=== PATIENT | male | born 1940 | race Caucasian/White ===

== ENCOUNTER → 2019-11-25 10:21 | Outpatient (BNVA) | payer MEDICARE, SELFPAY | PROVIDERS: Family Provider Internal Medicine; Visit Provider Orthopaedic Surgery | DX: M25.571 Pain in right ankle and joints of right foot (principal) | CPT/HCPCS: 73610 ==

== ENCOUNTER 2021-01-07 13:00 | Outpatient (CLI) | payer OTHER, SELFPAY | END 2021-01-07 13:01 | disposition home or self-care (01) | LOC: WOUND 13:05 | PROVIDERS: Family Provider Internal Medicine; Visit Provider Thoracic Surgery (Cardiothoracic Vascular Surgery) | DX: L98.412 Non-pressure chronic ulcer of buttock with fat layer exposed (principal) | CPT/HCPCS: 97597; G0463 ==

== ENCOUNTER 2021-01-14 14:44 | Outpatient (CLI) | payer OTHER, SELFPAY | END 2021-01-14 14:45 | disposition home or self-care (01) | LOC: WOUND 14:45 | PROVIDERS: Family Provider Internal Medicine; Visit Provider Thoracic Surgery (Cardiothoracic Vascular Surgery) | DX: L89.322 Pressure ulcer of left buttock, stage 2 (principal) | CPT/HCPCS: 97597 ==

== ENCOUNTER 2021-01-21 14:55 | Outpatient (CLI) | payer OTHER, SELFPAY | END 2021-01-21 14:56 | disposition home or self-care (01) | LOC: WOUND 14:55 | PROVIDERS: Family Provider Internal Medicine; Visit Provider Thoracic Surgery (Cardiothoracic Vascular Surgery) | DX: Z09 Encounter for follow-up examination after completed treatment for conditions other than malignant neoplasm (principal) | CPT/HCPCS: 99212 ==

== ENCOUNTER → 2021-06-23 09:16 | Outpatient (BNVA) | payer OTHER, SELFPAY | PROVIDERS: Family Provider Internal Medicine; Referring Provider Family Medicine; Visit Provider Specialist | DX: G31.83 Neurocognitive disorder with Lewy bodies (principal); F02.80 Dementia in other diseases classified elsewhere, unspecified severity, without behavioral disturbance, psychotic disturbance, mood disturbance, and anxiety | CPT/HCPCS: 96116; 99205 ==

== ENCOUNTER 2021-07-05 13:33 | Outpatient (CLI) | payer OTHER, SELFPAY ==
--- NOTE | 2021-07-05 13:45 | CT_ITS ---
WS: [id number] CT LUMBAR SPINE TECHNIQUE: Noncontrast CT of the lumbar spine with coronal and sagittal reformatted images. 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 FINDINGS: Mild lumbar curve. Chronic appearing compression T12 vertebral body with biconcave compression and lo ss of approximately 50% vertebral body height centrally. Mild retropulsion posterior superior cortex with mild central canal stenosis. Vacuum disc phenomenon L2-L3 L3-L4 and L4-L5. 4.1 cm left renal cys t partially visualized. Adrenal glands appear normal. Aortic calcification. L1-L2: Disc osteophyte complex with endplate ridging. Narrowing of the right subarticular recess. Mil d central canal stenosis. Foramen are patent. L2-L3: Slight retrolisthesis. Mild disc osteophytic ridging. Mild left and no significant right barb inal narrowing. Spinal canal is patent. Moderate facet arthropathy. L3-L4: Disc osteophyte complex with endplate ridging. Narrowing of the right subarticular recess. Mil d right and no significant left foraminal narrowing. Moderate to advanced facet arthropathy with liga ment flavum hypertrophy. L4-L5: Mild disc osteophytic ridging. Moderate to advanced facet arthropathy. Mild right and no signi ficant left foraminal narrowing. Moderate facet arthropathy ligament flavum hypertrophy. L5-S1: Disc osteophyte complex with endplate ridging. Slight contact of the traversing S1 nerve roots bilaterally. Moderate left and mild right foraminal narrowing. Moderate facet arthropathy. Visualized pelvic bony structures: Normal. Paravertebral soft tissues: Normal. CT/CT lumbar spine wo con* [id number] IMPRESSION: 1. Chronic appearing biconcave compression T12 vertebral body with loss of [place] roximately 50% vertebral body height. Mild retropulsion of the posterior superi or cortex with mild central canal stenosis. 2. Right pericentral disc osteophyte complex L1-2 with impingement on the righ t subarticular recess and traversing right L2 nerve root. Mild central canal st enosis at this level. 3. Vacuum disc phenomenon L2-L3, L3-L4 and L4-L5. 4. Moderate left L5-S1 bony foraminal narrowing.
== END 2021-07-05 13:34 | disposition home or self-care (01) ==
PROVIDERS: Visit Provider Specialist
DX: G31.83 Neurocognitive disorder with Lewy bodies (principal); F02.80 Dementia in other diseases classified elsewhere, unspecified severity, without behavioral disturbance, psychotic disturbance, mood disturbance, and anxiety; M54.9 Dorsalgia, unspecified; R26.81 Unsteadiness on feet; M25.78 Osteophyte, vertebrae; M48.061 Spinal stenosis, lumbar region without neurogenic claudication; S22.089A Unspecified fracture of T11-T12 vertebra, initial encounter for closed fracture; X58.XXXA Exposure to other specified factors, initial encounter
CPT/HCPCS: 72131

== ENCOUNTER → 2021-08-10 13:06 | Outpatient (BNVA) | payer OTHER, SELFPAY | PROVIDERS: Visit Provider Specialist | DX: G31.83 Neurocognitive disorder with Lewy bodies (principal); F02.80 Dementia in other diseases classified elsewhere, unspecified severity, without behavioral disturbance, psychotic disturbance, mood disturbance, and anxiety | CPT/HCPCS: 95816 ==

== ENCOUNTER → 2021-10-05 13:49 | Outpatient (BNVA) | payer OTHER, SELFPAY | PROVIDERS: Visit Provider Specialist | DX: G20 Parkinson's disease (principal); F02.80 Dementia in other diseases classified elsewhere, unspecified severity, without behavioral disturbance, psychotic disturbance, mood disturbance, and anxiety; L89.309 Pressure ulcer of unspecified buttock, unspecified stage; Z87.891 Personal history of nicotine dependence | CPT/HCPCS: 99213; 99214 ==

== ENCOUNTER → 2022-02-02 11:23 | Outpatient (BNVA) | payer OTHER, SELFPAY | PROVIDERS: Referring Provider Family Medicine; Visit Provider Podiatrist Foot & Ankle Surgery | DX: G31.83 Neurocognitive disorder with Lewy bodies (principal); F02.80 Dementia in other diseases classified elsewhere, unspecified severity, without behavioral disturbance, psychotic disturbance, mood disturbance, and anxiety; Z87.891 Personal history of nicotine dependence; M25.579 Pain in unspecified ankle and joints of unspecified foot | CPT/HCPCS: 73610; 99213; 99214 ==

== ENCOUNTER → 2022-05-16 12:47 | Outpatient (BNVA) | payer OTHER, SELFPAY | PROVIDERS: PCP Family Medicine; Visit Provider Specialist | DX: G31.83 Neurocognitive disorder with Lewy bodies (principal); F02.80 Dementia in other diseases classified elsewhere, unspecified severity, without behavioral disturbance, psychotic disturbance, mood disturbance, and anxiety; M25.371 Other instability, right ankle; Z99.3 Dependence on wheelchair | CPT/HCPCS: 99213; 99214 ==

== ENCOUNTER → 2022-06-08 12:59 | Outpatient (BNVA) | payer OTHER, SELFPAY | PROVIDERS: PCP Family Medicine; Visit Provider Podiatrist Foot & Ankle Surgery | DX: M19.171 Post-traumatic osteoarthritis, right ankle and foot (principal); Z79.4 Long term (current) use of insulin; M25.371 Other instability, right ankle; I73.9 Peripheral vascular disease, unspecified; E11.9 Type 2 diabetes mellitus without complications | CPT/HCPCS: 99213; 99214 ==

== ENCOUNTER → 2022-06-14 14:47 | Outpatient (BNVA) | payer OTHER, SELFPAY | PROVIDERS: PCP Family Medicine; Visit Provider Internal Medicine Pulmonary Disease | DX: J45.909 Unspecified asthma, uncomplicated (principal); R06.09 Other forms of dyspnea; Z87.891 Personal history of nicotine dependence | CPT/HCPCS: 36415; 82103; 82785; 85025; 86003; 99204 ==

== ENCOUNTER 2022-07-06 07:51 | Outpatient (CLI) | payer OTHER, SELFPAY ==
--- NOTE | 2022-07-06 08:40 | XR_ITS ---
WS: [id number] Exam: XR chest 2V* [id number] Date/Time of Exam: 07/06/2022 8:47 AM Reason For Exam: Shortness of breath No priors. The lungs are fully expanded and clear. Cardiomediastinal silhouette is unremarkable for AP technique . No pleural effusions. Bony structures are intact. Partially visualized old compression fracture of T12. XR/XR chest 2V* [id number] IMPRESSION: 1. No acute cardiopulmonary finding.
--- NOTE | 2022-07-06 09:04 | PFTS_ITS ---
Date of Study:07/06/22 Date of Dictation: MECHANICS: Forced vital capacity (FVC) is reduced. Forced expiratory volume in one second (FEV1) is reduced. FEV1/FVC is reduced. FLOW VOLUME LOOP: Reduced at all lung volumes with significant scooping. LUNG VOLUMES: Total lung capacity (TLC) is reduced. Residual volume (RV) is normal. DIFFUSING CAPACITY FOR CARBON MONOXIDE: Moderately reduced. INTERPRETATION: The postbronchodilator spirometry is consistent with severe airflow obstruction. There is no significant postbronchodilator response. Lung volume is consistent with moderate restriction. Gas exchange (DLCO) is moderately reduced. MTDD
[2022-07-06 09:32] VITALS: O2SAT 86; O2SAT 93
== END 2022-07-06 07:52 | disposition home or self-care (01) ==
PROVIDERS: PCP Family Medicine; Visit Provider Internal Medicine Pulmonary Disease
DX: R06.02 Shortness of breath (principal)
CPT/HCPCS: 71046; 94060; 94726; 94729; 94760; J7611

== ENCOUNTER → 2022-08-03 14:56 | Outpatient (BNVA) | payer OTHER, SELFPAY | PROVIDERS: PCP Family Medicine; Visit Provider Internal Medicine Pulmonary Disease | DX: R06.09 Other forms of dyspnea (principal); Z87.891 Personal history of nicotine dependence; J44.9 Chronic obstructive pulmonary disease, unspecified; J45.20 Mild intermittent asthma, uncomplicated; J82.83 Eosinophilic asthma | CPT/HCPCS: 99214 ==

== ENCOUNTER → 2022-12-13 13:51 | Outpatient (BNVA) | payer OTHER, SELFPAY | PROVIDERS: PCP Family Medicine; Visit Provider Podiatrist Foot & Ankle Surgery | DX: I73.9 Peripheral vascular disease, unspecified (principal); M25.371 Other instability, right ankle; M19.171 Post-traumatic osteoarthritis, right ankle and foot; E11.9 Type 2 diabetes mellitus without complications; Z79.4 Long term (current) use of insulin | CPT/HCPCS: 99214 ==

== ENCOUNTER 2023-04-06 15:30 | Emergency (ER) | payer OTHER, SELFPAY ==
[2023-04-06 15:39] VITALS: BP 165/74; PULSE 74; TEMP 36.7; O2SAT 94; BMI 33.1
--- NOTE | 2023-04-06 15:42 | ED_ITS ---
HPI - General Adult General: Chief complaint: Urogenital-Male Stated complaint: uti Time Seen by Provider: 04/06/23 15:36 Source: EMS Mode of arrival: EMS Limitations: altered mental status History of Present Illness: 83-year-old male with a history of dementia is here by EMS as he has had decreased urine output. Per she states that he has not urinated all over the last few days and has been having some suprapubic pain and swelling. Patient has dementia no history is really available from him no known fevers. Review of Systems General: Reports: ROS unobtainable due to mental status PFS ED PFSH: Medical History Diabetic neuropathy Sprain of other ligament of right ankle, subsequent encounter Family History Father Asthma Mother Asthma Social History Smoking and tobacco status: former smoker Quit status (tobacco): has quit using tobacco Year quit tobacco: 1995 Former quit date comment: 1ppd x years Alcohol intake: never Substance/Drug Use: never Physical Exam Const: COMMON NORMALS: negative for patient oriented x3 HENMT: COMMON NORMALS: normocephalic and atraumatic HEAD & SCALP: normocephalic and atraumatic Eye: COMMON NORMALS: conjunctivae normal CONJUNCTIVA: Yes conjunctivae normal Neck/C-Spine: COMMON NORMALS: full ROM and supple Chest: COMMONS NORMALS: normal inspection of the chest Resp: COMMON NORMALS: normal respiratory effort Cardio: COMMON NORMALS: regular rate, regular rhythm and No murmurs present (Cardio) RATE: regular rate RHYTHM: regular rhythm GI: COMMON NORMALS: Normal to inspection, nondistended, normoactive bowel sounds present, Soft to palpation and no masses PALPATION: Yes Soft to palpation OTHER: suprapubic tenderness Extremity: COMMON NORMALS: normal to inspection and full ROM Neuro: COMMON NORMALS: moves all extremities and no focal motor deficits; negative for patient oriented x3 Psych: COMMON NORMALS: cooperative; negative for mental status grossly normal Skin: COMMON NORMALS: no rashes or lesions noted and no wounds GENERAL SKIN EXAM: no rashes or lesions noted Course Vital Signs: Vital signs: Vital Signs Temperature 98.1 F 06/01/23 15:39 Pulse Rate 75 04/06/23 16:30 Respiratory Rate 18 04/06/23 16:30 Blood Pressure 174/80 04/06/23 16:30 Pulse Oximetry 95 04/06/23 16:30 Oxygen Delivery Me thod Room Air 04/06/23 15:39 MDM - General Adult Medical Decision Making Patient presents here with urinary tension he had over thousand out after a Ruiz was placed no signs of UTI is otherwise well-appearing here we will discharge with Ruiz in place with leg bag we will get him follow-up with urology he is return if worsening. Medical Records I reviewed the patient's medical records. Lab Data I reviewed the patient's lab results. Laboratory Results Urine Color Divya (Yellow) 04/06/23 15:51 Urine Appearance Clear (CLEAR) 04/06/23 15:51 Urine pH 6 (5-7) 04/06/23 15:51 Ur Specific [place] 1.010 (1.005-1.030) 04/06/23 15:51 Urine Protein 1+ (Negative) H 04/06/23 15:51 Urine Glucose (UA) Norm (Normal) 04/06/23 15:51 Urine Ketones Negative (Negative) 04/06/23 15:51 Urine Blood Neg (Negative) 04/06/23 15:51 Urine Nitrate Negative (Negative) 04/06/23 15:51 Urine Bilirubin Neg (Negative) 04/06/23 15:51 Urine Urobilinogen 1 mg/dL (Negative) H 04/06/23 15:51 Ur Leukocyte Esterase Negative (Negative) 04/06/23 15:51 Urine RBC 0-4 /hpf (0-2) H 04/06/23 15:51 Urine WBC 0-4 /hpf (0-5) H 04/06/23 15:51 Ur Squamous Epith Cells 0-4 /hpf (0-5) H 04/06/23 15:51 Amorphous Sediment Not Reportable 04/06/23 15:51 Urine Bacteria Not Reportable 04/06/23 15:51 Urine Mucus 2+ /hpf 04/06/23 15:51 Discharge Plan Discharge Patient Disposition: Home Clinical Impression: Acute retention of urine Condition: Stable Prescriptions: No Action gabapentin 800 mg tablet 800 mg PO TID cetirizine 10 mg capsule PO magnesium oxide 400 mg magnesium capsule 400 mg PO QDAY sennosides [Evac-U-Gen (sennosides)] 8.6 mg tablet 8.6 mg PO BID cyclobenzaprine 10 mg tablet 10 mg PO BID triamterene-hydrochlorothiazid 75-50 mg tablet 0.5 tab PO QAM citalopram 40 mg tablet 40 mg PO QDAY (DME) Gait Belt See Rx Instructions .Route .MEDSUPPLY Qty: 1 0RF Rx Instructions: As directed (DME) AFO to right with shoes See Rx Instructions .Route .MEDSUPPLY Qty: 1 0RF Rx Instructions: As directed by LEVI&O omega 6-qeh-glh-fish oil [Fish Oil] 1,000 mg (120 mg-180 mg) capsule 1 cap PO DAILY cholecalciferol (vitamin D3) 125 mcg (5,000 unit) capsule 125 mcg PO DAILY coenzyme Q10 [Co Q-10] 200 mg capsule 200 mg PO DAILY famotidine 20 mg tablet 20 mg PO DAILY omega-3 fatty acids 1,250 mg capsule 1,250 mg PO BID aspirin [Adult Aspirin Regimen] 81 mg tablet,delayed release (DR/EC) 81 mg PO DAILY lactulose 10 gram/15 mL solution 10 g PO DAILY insulin aspart U-100 100 unit/mL solution 30 unit SUBCUT BID insulin glargine U-300 conc 300 unit/mL (3 mL) insulin pen 70 unit SUBCUT DAILY rosuvastatin 10 mg tablet 5 mg PO DAILY galantamine 4 mg tablet 4 mg PO BID Qty: 60 3RF Rx Instructions: administer with AM and PM meals albuterol sulfate 90 mcg/actuation HFA aerosol inhaler 2 puff inhalation Q6H PRN montelukast [Singulair] 10 mg tablet 10 mg PO DAILY Qty: 30 3RF ipratropium-albuterol 0.5 mg-3 mg(2.5 mg base)/3 mL solution for nebulization 3 ml inhalation Q6H PRN (Reason: wheezing) Qty: 180 3RF (DME) nebulizers Misc See Rx Instructions .Route Qty: 1 0RF Rx Instructions: Nebulizer and accessories (DME) Oxygen Therapy See Rx Instructions .Route .MEDSUPPLY Qty: 1 0RF Rx Instructions: oxygen concentrator and tanks; 2-4Lpm per NC; give cannula, tubing and accessories as needed fluticasone propion-salmeterol [Wixela Inhub] 250-50 mcg/dose blister with device 1 inh inhalation BID Qty: 60 3RF Discharge Orders: Discharge ED (Routine); Ordered 04/06/23 Ordered By: Tuan Newby Referrals: Rebecca Limon MD [Primary Care Provider] - 1-3 days Discharge Diet: Advance as tolerated Discharge Activity: Resume usual activity Patient Instructions: Ruiz Catheter Care, Urinary Retention in Men (ED) Coding Level of Care Code ED Business Solutions Analyst for Karime Valles
[2023-04-06 15:46] VITALS: BP 165/74; PULSE 69; RESP 16; O2SAT 94
[2023-04-06] MEDS: nystatin powder 15 gm Btl 1 APPLIC TOPICAL (16:14)
--- NOTE | 2023-04-06 16:19 | PC.PHAR ---
faxed [place] for med list
[2023-04-06 16:30] VITALS: BP 174/80; PULSE 75; RESP 18; O2SAT 95
[2023-04-06 17:02] LABS: Add Urine Microscopic? YES; Bilirubin Urine Neg (Negative); Blood Urine Neg (Negative); Glucose Urine UA Norm (Normal); Ketones Urine Negative (Negative); Leukocyte Esterase Urine Negative (Negative); Nitrate Urine Negative (Negative); Protein Urine 1+ (Negative); Urine Appearance Clear (CLEAR); Urine Color Amber (Yellow); Urobilinogen Urine 1 mg/dL (Negative); pH Urine 6 (5-7)
[2023-04-06 17:03] LABS: Add Urine Culture? No; Mucus Urine 2+ /hpf; RBC Urine 0-4 /hpf (0-2); Squamous Epithelial Cell Urine 0-4 /hpf (0-5); WBC Urine 0-4 /hpf (0-5)
[2023-04-06 17:17] VITALS: BP 168/58; PULSE 74; O2SAT 95
--- NOTE | 2023-04-07 08:55 | DCPLANNER ---
Addendum entered by Keri Fernández 04/20/23 10:16: manager clinical services called [facility] to confirm that patients information had been received, therapeutic case manager was told that clinic had received patients information, it will be reviewed, clinic will call patient with appointment information. Addendum entered by Keri Fernández 04/11/23 12:58: manager clinical services received the following message from the urology clinic regarding followup appointment: pt will need to be sent elsewhere due to needing a [facility] authorization. manager clinical services spoke with patients , who stated to send patients information to [place]. manager clinical services faxed patients information to the [place] [facility]. Patients information will be reviewed and clinic will call patient with appointment information. Original Note: manager clinical services had message to schedule a follow up appointment for patient with urology. manager clinical services sent patients information to the front office staff at urolog. Patients information will be printed and reviewed. Clinic will call patient with appointment information.
== END 2023-04-06 17:32 | disposition home or self-care (01) ==
PROVIDERS: Emergency Provider Emergency Medicine; PCP Family Medicine
DX: R33.9 Retention of urine, unspecified (principal); Z79.82 Long term (current) use of aspirin; Z79.4 Long term (current) use of insulin; E11.9 Type 2 diabetes mellitus without complications; Z87.891 Personal history of nicotine dependence
CPT/HCPCS: 51702; 81001; 99283

== ENCOUNTER 2024-05-28 16:18 | Inpatient (IN) | payer OTHER, MEDICARE, SELFPAY ==
[2024-05-28] VITALS (16 sets, daily range): BP systolic 119–164; BP diastolic 58–101; PULSE 63–105; RESP 0–25; TEMP 36.4–37.8; O2SAT 89–100; BMI 28.8
--- NOTE | 2024-05-28 16:25 | XRR_ITS ---
PROCEDURE INFORMATION: Exam: XR Chest Exam date and time: 05/28/2024 4:33 PM Age: 84 years old Clinical indication: Shortness of breath TECHNIQUE: Imaging protocol: Radiologic exam of the chest. Views: 1 view. COMPARISON: CR XR chest 2V* [id number] 07/06/2022 8:57 AM FINDINGS: Lungs: Interval development of moderate interstitial pulmonary edema with bilateral lower lobe atelectasis. Pleural spaces: Interval development of small bilateral pleural effusions. No pneumothorax. Heart/Mediastinum: Stable mild enlargement of the cardiac silhouette. Mediastinal contours are unremarkable. Vasculature: Stable vascular calcifications in the aorta. Stable tortuosity of the aorta. Bones/joints: Unremarkable for age. XR/XR chest 1V portable [id number] IMPRESSION: 1. Interval development of moderate interstitial pulmonary edema with bilateral lower lobe atelectasis. 2. Interval development of small bilateral pleural effusions.
--- NOTE | 2024-05-28 16:25 | ECG_ITS ---
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 Measurements Intervals [place] Rate: 102 P: 0 CA: 0 QRS: 76 QRSD: 97 T: -42 QT: 333 QTc: 436 Interpretive Statements [address]US T[address] DEVIATION AND MODERATE T-WAVE ABNORMALITY, CONSIDER ANTERIOR ISCHEMIA [-0.1+ mV T-WAVE IN V3/V4] Compared to ECG 10/21/2015 21:13:49 T-wave abnormality now present Possible ischemia now present Electronically Signed On 05-29-2024 10:33:12 CDT by Mundo Tolentino M.D. [id number]
[2024-05-28 16:45] LABS: ABG PH Result 7.22 (7.35-7.45); Alveolar-Arterial Oxygen Gradi 9.9 mmHg (5-10); Arterial Blood Gas Hematocrit 34.5 % (42-52); Base Excess ABG 6.6 mmol/L (-2.0-2.0); Blood Gas Allen Test Pos; Blood Gas Operator Identificat CAK; Blood Gas Sample Site Brachial, left; Blood Gas Sample Type Arterial; HCO3 ABG 36.9 mmol/L (22-26); HGB O2 Sat 90.8 % (95-100); Ionized Calcium Level - ABG 1.3 mmol/L (1.1-1.4); Methemoglobin 0.2 % (0.4-1.5); Oxygen Device NC; Oxygen Saturation ABG 92.8; PO2 ABG 74.5 mmHg (80.0-100.0); PO2 FiO2 Ratio Arterial Blood 206; Potassium Level - ABG 4.4 mmol/L (3.5-5.0); Total Hemoglobin 11.2 g/dL (14-18)
--- NOTE | 2024-05-28 16:54 | ED_ITS ---
Documented by User: Arlene Reyes MD 05/28/24 17:50 HPI - Weakness 2 General: Chief complaint: Weakness Stated complaint: RESP. DISTRESS Time Seen by Provider: 05/28/24 16:22 History of Present Illness: 84-year-old man with a history of advanc ed dementia,, type 2 diabetes mellitus, failure to thrive, obesity, neuropathy, COPD who presents to the emergency room by ambulance from the senior living. EMS reports that he he is palliative care but is also a full code. He has a temp of 100.1 on presentation. No one appears to be able to tell us what his baseline mentation is. He is somnolent on presentation. He is requiring oxygen. He is on 4 L when he arrives with an O2 sat of 90. Apparently he does not require oxygen at baseline Review of Systems 2 General: Reports: ROS unobtainable due to medical condition and ROS unobtainable due to mental status PFS ED 2 PFSH: Medical History Diabetic neuropathy Sprain of other ligament of right ankle, subsequent encounter Family History Father Asthma Mother Asthma Social History Smoking and tobacco/nicotine status: former use of tobacco/nicotine Quit status (tobacco/nicotine): has quit using Year quit tobacco: 1995 Former quit date comment: 1ppd x years Alcohol intake: never Substance/Drug Use: never Physical Exam 2 Narrative: EXAM NARRATIVE: General: Somnolent, ill-appearing, does open eyes to verbal stimuli Skin: Warm, dry. Head: Normocephalic, atraumatic. Neck: Supple, trachea midline. Eye: Extraocular movements are intact. Ears, nose, mouth and throat: mucosa moist. Cardiovascular: Regular, Normal peripheral perfusion. Respiratory: Coarse, scattered wheeze, mild tachypnea, requiring oxygen Gastrointestinal: Soft, Non distended, Normal bowel sounds. Musculoskeletal: Normal ROM, no deformity. Neurological: Somnolent, No focal neurological deficit observed. Psychiatric: Patient seems confused/demented. Course 2 Vital Signs: Vital signs: Vital Signs Temperature 100.1 F H 05/28/24 16:36 Pulse Rate 79 05/28/24 19:43 Respiratory Rate 15 05/28/24 19:43 Blood Pressure 133/101 05/28/24 19:43 Pulse Oximetry 95 05/28/24 19:43 Oxygen Delivery Me thod BiPAP 05/28/24 19:43 Oxygen Flow Rate 4 05/28/24 16:36 Fraction of Inspir ed Oxygen 40 05/28/24 17:10 MDM - Weakness Medical Decision Making Differential diagnosis for patient with new onset hypoxemia includes but is not limited to and based on the above HPI, review of systems and physical exam: Pneumonia. Bronchitis. Asthma or COPD with acute exacerbation. Acute coronary syndrome / AR. Pulmonary embolism. Anxiety. Congestive heart failure. Viral infections including influenza and Covid-19. Atrial fibrillation. Anxiety. Pleural effusion. Pneumothorax. Workup: Lab work, chest X-ray and EKG ordered to evaluate, rule in and rule out above pathologies AB.22/90/75 on 4 L nasal cannula. O2 sat is 92% on 4 L. Patient has a respiratory acidosis secondary to CO2 retention. BiPAP has been ordered EKG: Time 1624. Rate 102. Sinus tachycardia, No ST-T changes, no ectopy, normal MS & QRS intervals, This was reviewed and interpreted by myself the ER physician at 1630. Chest x-ray: Pulmonary edema with bilateral lower lobe atelectasis. Pleural effusions. This is new compared to previous. This was reviewed and interpreted by myself the emergency room physician. I also reviewed the radiology report. Lab Review: Laboratory results were reviewed and interpreted by myself the emergency room physician. White count of 6.7. Hemoglobin is stable 11. BUN and creatinine are 23 and 0.8. Lactate is negative. Urinalysis does show probable infection, however he does have an indwelling Ruiz catheter. proBNP is 30,000 which would further support congestive heart failure. I reviewed the patient's medical record. Assessment and plan: Hypercapnic respiratory failure Hypoxemic respiratory failure Hypercapnic respiratory failure Encephalopathy Fever Urinary tract infection Possible sepsis Possible CHF -No family has been able to be contacted and senior living is very unclear on patient's CODE STATUS. They say for sure he is a full code but also they say for sure he is on hospice. At this point to treat him like he is full code and not on hospice -BiPAP, IV Solu-Medrol, 2 updrafts. ?Patient was requiring 4 L prior to BiPAP - I am holding off on fluids and on diuresis at this point. I placed the patient on a BiPAP for hypercapnic respiratory failure, and this should also help treat heart failure without running the risk of patient biting his blood pressure if he is septic. Definitely am not comfortable giving fluids with him appearing to be in heart failure. -Broad-spectrum antibiotics were administered. -Sepsis quality measures. -Lactic acid with a reflex was ordered. -Blood cultures were ordered. -I discussed the patient with the hospitalist on-call who is contacting the senior living and will decide on admission based on whether they are in hospice or not. - All laboratory values were reviewed and interpreted personally by myself, the ER physician - All imaging was reviewed and interpreted personally by myself, the ER physician. - Evaluation and treatment of this problem were appropriate in the emergency setting -I spent a total of >35 minutes of critical care time managing the patient, independent of any other practitioner. -The time involved in the performance of separately reportable procedures was not counted towards critical care time. Patient care transitioned to Dr. Mccall at shift change. Lab Data 05/28/24 16:07 05/28/24 16:07 Radiology Impressions Chest X-Ray 05/28/24 16:25 IMPRESSION: 1. Interval development of moderate interstitial pulmonary edema with bilateral lower lobe atelectasis. 2. Interval development of small bilateral pleural effusions. Laboratory Results WBC 6.76 10^3/uL (3.29-11.43) 05/28/24 16:07 RBC 3.69 10^6/uL (3.85-5.65) L 05/28/24 16:07 Hgb 11.00 g/dL (11.27-16.99) L 05/28/24 16:07 Hct 36.7 % (37-53) L 05/28/24 16:07 MCV 99.5 fl (82-101) 05/28/24 16:07 MCH 29.8 pg (27-33) 05/28/24 16:07 MCHC 30.0 g/dL (30-55) 05/28/24 16:07 RDW 13.2 % (12.1-15.1) 05/28/24 16:07 Plt Count 236 10^3/cmm (157-399) 05/28/24 16:07 MPV 9.9 fL (7.4-10.4) 05/28/24 16:07 Neut % (Auto) 70.8 % 05/28/24 16:07 Lymph % (Auto) 10.4 % 05/28/24 16:07 Garrard % (Auto) 17.5 % 05/28/24 16:07 Eos % (Auto) 0.4 % 05/28/24 16:07 Baso % (Auto) 0.6 % 05/28/24 16:07 Neut # (Auto) 4.79 10^3/uL (1.8-7.7) 05/28/24 16:07 Lymph # (Auto) 0.7 10^3/uL (0.8-4.8) L 05/28/24 16:07 Garrard # (Auto) 1.2 10^3/uL (0.2-0.9) H 05/28/24 16:07 Eos # (Auto) 0.0 10^3/uL (0.0-0.8) 05/28/24 16:07 Baso # (Auto) 0.0 10^3/uL (0.0-0.1) 05/28/24 16:07 Nucleated RBC % (auto) 0 % 05/28/24 16:07 Nucleated RBCs # 0.0 /100WBC 05/28/24 16:07 Specimen Type Arterial 05/28/24 18:21 Sample Site Brachial, left 05/28/24 18:21 ABG pH 7.31 (7.35-7.45) L 05/28/24 18:21 ABG pCO2 70.0 mmHg (35-45) H* 05/28/24 18:21 ABG pO2 72.0 mmHg (80.0-100.0) L 05/28/24 18:21 ABG PO2/FiO2 Ratio 180 05/28/24 18:21 ABG HCO3 35.3 mmol/L (22-26) H 05/28/24 18:21 ABG O2 Saturation 92.8 05/28/24 16:33 ABG Base Excess 7.2 mmol/L (-2.0-2.0) H 05/28/24 18:21 Julius Test Pos 05/28/24 18:21 A-a O2 Gradient 9.9 mmHg (5-10) 05/28/24 16:33 Hematocrit 33.8 % (42-52) L 05/28/24 18:21 Hgb O2 Saturation 90.8 % (95-100) L 05/28/24 16:33 Carboxyhemoglobin 2.0 %THgb (0.4-20.1) 05/28/24 16:33 Methemoglobin 0.2 % (0.4-1.5) L 05/28/24 16:33 Total Hemoglobin 11.2 g/dL (14-18) L 05/28/24 16:33 Sodium 146.0 mmol/L (131-143) H 05/28/24 16:33 Potassium 4.4 mmol/L (3.5-5.0) 05/28/24 16:33 Glucose 203.0 mg/dL (70-115) H 05/28/24 16:33 Ionized Calcium 1.3 mmol/L (1.1-1.4) 05/28/24 16:33 O2 Delivery Device Bipap 05/28/24 18:21 O2 Liters/Min 4.0 % 05/28/24 16:33 FiO2 40.0 % 05/28/24 18:21 Ornamental Metal Worker Apprentice ID Cak 05/28/24 18:21 Sodium 146 mmol/L (136-145) H 05/28/24 16:07 Potassium 4.5 mmol/L (3.5-5.1) 05/28/24 16:07 Chloride 102 mmol/L (98-107) 05/28/24 16:07 Carbon Dioxide 36 mmol/L (22-29) H 05/28/24 16:07 Anion Gap 12.5 (5-19) 05/28/24 16:07 BUN 23 mg/dL (8-23) 05/28/24 16:07 Creatinine 0.8 mg/dL (0.7-1.2) 05/28/24 16:07 GFR Calculation Not Reportable 05/28/24 16:07 Glucose 195 mg/dL (65-115) H 05/28/24 16:07 Calculated Osmolality 311 mOsm/kg (285-295) H 05/28/24 16:07 Lactic Acid 0.7 mmol/L (0.5-2.2) 05/28/24 16:07 Calcium 9.6 mg/dL (8.5-10.5) 05/28/24 16:07 Total Bilirubin 0.4 mg/dL (0.15-1.2) 05/28/24 16:07 AST 12 U/L (0-40) 05/28/24 16:07 ALT < 5 U/L (0-41) 05/28/24 16:07 Alkaline Phosphatase 78 U/L (40-130) 05/28/24 16:07 Troponin T Baseline 245 ng/L (0-15) H* 05/28/24 16:07 Troponin T 120 Minute 234.1 ng/L (0-15) H 05/28/24 18:22 Delta Troponin T -10.9 ABS# (0-10) L 05/28/24 18:22 C-Reactive Protein 181.6 mg/L (0.0-4.9) H 05/28/24 16:07 NT-Pro-B Natriuret Pep 79663 pg/mL (0-450) H 05/28/24 16:07 Total Protein 7.2 g/dL (6.6-8.7) 05/28/24 16:07 Albumin 3.1 g/dL (3.5-5.2) L 05/28/24 16:07 Globulin 4.1 g/dL (1.3-4.6) 05/28/24 16:07 Urine Color Yellow (Yellow) 05/28/24 16:34 Urine Appearance Cloudy (CLEAR) A 05/28/24 16:34 Urine pH 5 (5-7) 05/28/24 16:34 Ur Specific Stephen 1.025 (1.005-1.030) 05/28/24 16:34 Urine Protein 3+ (Negative) H 05/28/24 16:34 Urine Glucose (UA) Norm (Normal) 05/28/24 16:34 Urine Ketones 1+ (Negative) H 05/28/24 16:34 Urine Blood 2+ (Negative) H 05/28/24 16:34 Urine Nitrate Positive (Negative) A 05/28/24 16:34 Urine Bilirubin 1+ (Negative) H 05/28/24 16:34 Urine Urobilinogen 4 mg/dL (Negative) H 05/28/24 16:34 Ur Leukocyte Esterase 2+ (Negative) H 05/28/24 16:34 Urine RBC 25-40 /hpf (0-2) H 05/28/24 16:34 Urine WBC 10-15 /hpf (0-5) H 05/28/24 16:34 Ur Squamous Epith Cells 5-10 /hpf (0-5) H 05/28/24 16:34 Amorphous Sediment Not Reportable 05/28/24 16:34 Urine Bacteria 2+ /hpf (NONE) H 05/28/24 16:34 Adenovirus (PCR) Not detected (NOT DETECT) 05/28/24 18:28 C. pneumoniae DNA (PCR) Not detected (NOT DETECT) 05/28/24 18:28 Coronavirus 229E (PCR) Not detected (NOT DETECT) 05/28/24 18:28 Human Metapneumovir PCR Not detected (NOT DETECT) 05/28/24 18:28 Influenza A (H1) PCR Not detected (NOT DETECT) 05/28/24 18:28 Influ A (H1/09) PCR Not detected (NOT DETECT) 05/28/24 18:28 Influenza A (H3) PCR Not detected (NOT DETECT) 05/28/24 18:28 Influenza Type A (PCR) Not detected (NOT DETECT) 05/28/24 18:28 Influenza Type B (PCR) Not detected (NOT DETECT) 05/28/24 18:28 M. pneumoniae (PCR) Not detected (NOT DETECT) 05/28/24 18:28 Parainfluenza 1 (PCR) Not detected (NOT DETECT) 05/28/24 18:28 Parainfluenza 2 (PCR) Not detected (NOT DETECT) 05/28/24 18:28 Parainfluenza 3 (PCR) Not detected (NOT DETECT) 05/28/24 18:28 Parainfluenza 4 (PCR) Not detected (NOT DETECT) 05/28/24 18:28 RSV Type A (PCR) Not detected (NOT DETECT) 05/28/24 18:28 RSV Type B (PCR) Not detected (NOT DETECT) 05/28/24 18:28 Entero/Rhino (PCR) Not detected (NOT DETECT) 05/28/24 18:28 SARS-CoV-2 (PCR) Not detected (NOT DETECT) 05/28/24 18:28 Discharge Plan Discharge Patient Disposition: Admitted As Inpatient Admit Provider: Maddie Sanchez Clinical Impression: Hypercapnic respiratory failure, Chronic hypoxemic respiratory failure, Sepsis, Advanced dementia, Congestive heart failure, Urinary tract infection Condition: Stable Coding Level of Care Code ED Billing Representative for Chg Fwd Documented by User: Padilla Mccall DO 05/28/24 20:51 HPI - Weakness 2 General: Chief complaint: Weakness Stated complaint: RESP. DISTRESS Time Seen by Provider: 05/28/24 16:22 PFSH ED 2 PFSH: Medical History Diabetic neuropathy Sprain of other ligament of right ankle, subsequent encounter Family History Father Asthma Mother Asthma Social History Smoking and tobacco/nicotine status: former use of tobacco/nicotine Quit status (tobacco/nicotine): has quit using Year quit tobacco: 1995 Former quit date comment: 1ppd x years Alcohol intake: never Substance/Drug Use: never Course 2 Vital Signs: Vital signs: Vital Signs Temperature 100.1 F H 05/28/24 16:36 Pulse Rate 79 05/28/24 19:43 Respiratory Rate 15 05/28/24 19:43 Blood Pressure 133/101 05/28/24 19:43 Pulse Oximetry 95 05/28/24 19:43 Oxygen Delivery Me thod BiPAP 05/28/24 19:43 Oxygen Flow Rate 4 05/28/24 16:36 Fraction of Inspir ed Oxygen 40 05/28/24 17:10 MDM - Weakness Lab Data 05/28/24 16:07 05/28/24 16:07 Radiology Impressions Chest X-Ray 05/28/24 16:25 IMPRESSION: 1. Interval development of moderate interstitial pulmonary edema with bilateral lower lobe atelectasis. 2. Interval development of small bilateral pleural effusions. Laboratory Results WBC 6.76 10^3/uL (3.29-11.43) 05/28/24 16:07 RBC 3.69 10^6/uL (3.85-5.65) L 05/28/24 16:07 Hgb 11.00 g/dL (11.27-16.99) L 05/28/24 16:07 Hct 36.7 % (37-53) L 05/28/24 16:07 MCV 99.5 fl (82-101) 05/28/24 16:07 MCH 29.8 pg (27-33) 05/28/24 16:07 MCHC 30.0 g/dL (30-55) 05/28/24 16:07 RDW 13.2 % (12.1-15.1) 05/28/24 16:07 Plt Count 236 10^3/cmm (157-399) 05/28/24 16:07 MPV 9.9 fL (7.4-10.4) 05/28/24 16:07 Neut % (Auto) 70.8 % 05/28/24 16:07 Lymph % (Auto) 10.4 % 05/28/24 16:07 Garrard % (Auto) 17.5 % 05/28/24 16:07 Eos % (Auto) 0.4 % 05/28/24 16:07 Baso % (Auto) 0.6 % 05/28/24 16:07 Neut # (Auto) 4.79 10^3/uL (1.8-7.7) 05/28/24 16:07 Lymph # (Auto) 0.7 10^3/uL (0.8-4.8) L 05/28/24 16:07 Garrard # (Auto) 1.2 10^3/uL (0.2-0.9) H 05/28/24 16:07 Eos # (Auto) 0.0 10^3/uL (0.0-0.8) 05/28/24 16:07 Baso # (Auto) 0.0 10^3/uL (0.0-0.1) 05/28/24 16:07 Nucleated RBC % (auto) 0 % 05/28/24 16:07 Nucleated RBCs # 0.0 /100WBC 05/28/24 16:07 Specimen Type Arterial 05/28/24 18:21 Sample Site Brachial, left 05/28/24 18:21 ABG pH 7.31 (7.35-7.45) L 05/28/24 18:21 ABG pCO2 70.0 mmHg (35-45) H* 05/28/24 18:21 ABG pO2 72.0 mmHg (80.0-100.0) L 05/28/24 18:21 ABG PO2/FiO2 Ratio 180 05/28/24 18:21 ABG HCO3 35.3 mmol/L (22-26) H 05/28/24 18:21 ABG O2 Saturation 92.8 05/28/24 16:33 ABG Base Excess 7.2 mmol/L (-2.0-2.0) H 05/28/24 18:21 Julius Test Pos 05/28/24 18:21 A-a O2 Gradient 9.9 mmHg (5-10) 05/28/24 16:33 Hematocrit 33.8 % (42-52) L 05/28/24 18:21 Hgb O2 Saturation 90.8 % (95-100) L 05/28/24 16:33 Carboxyhemoglobin 2.0 %THgb (0.4-20.1) 05/28/24 16:33 Methemoglobin 0.2 % (0.4-1.5) L 05/28/24 16:33 Total Hemoglobin 11.2 g/dL (14-18) L 05/28/24 16:33 Sodium 146.0 mmol/L (131-143) H 05/28/24 16:33 Potassium 4.4 mmol/L (3.5-5.0) 05/28/24 16:33 Glucose 203.0 mg/dL (70-115) H 05/28/24 16:33 Ionized Calcium 1.3 mmol/L (1.1-1.4) 05/28/24 16:33 O2 Delivery Device Bipap 05/28/24 18:21 O2 Liters/Min 4.0 % 05/28/24 16:33 FiO2 40.0 % 05/28/24 18:21 Ornamental Metal Worker Apprentice ID Cak 05/28/24 18:21 Sodium 146 mmol/L (136-145) H 05/28/24 16:07 Potassium 4.5 mmol/L (3.5-5.1) 05/28/24 16:07 Chloride 102 mmol/L (98-107) 05/28/24 16:07 Carbon Dioxide 36 mmol/L (22-29) H 05/28/24 16:07 Anion Gap 12.5 (5-19) 05/28/24 16:07 BUN 23 mg/dL (8-23) 05/28/24 16:07 Creatinine 0.8 mg/dL (0.7-1.2) 05/28/24 16:07 GFR Calculation Not Reportable 05/28/24 16:07 Glucose 195 mg/dL (65-115) H 05/28/24 16:07 Calculated Osmolality 311 mOsm/kg (285-295) H 05/28/24 16:07 Lactic Acid 0.7 mmol/L (0.5-2.2) 05/28/24 16:07 Calcium 9.6 mg/dL (8.5-10.5) 05/28/24 16:07 Total Bilirubin 0.4 mg/dL (0.15-1.2) 05/28/24 16:07 AST 12 U/L (0-40) 05/28/24 16:07 ALT < 5 U/L (0-41) 05/28/24 16:07 Alkaline Phosphatase 78 U/L (40-130) 05/28/24 16:07 Troponin T Baseline 245 ng/L (0-15) H* 05/28/24 16:07 Troponin T 120 Minute 234.1 ng/L (0-15) H 05/28/24 18:22 Delta Troponin T -10.9 ABS# (0-10) L 05/28/24 18:22 C-Reactive Protein 181.6 mg/L (0.0-4.9) H 05/28/24 16:07 NT-Pro-B Natriuret Pep 00479 pg/mL (0-450) H 05/28/24 16:07 Total Protein 7.2 g/dL (6.6-8.7) 05/28/24 16:07 Albumin 3.1 g/dL (3.5-5.2) L 05/28/24 16:07 Globulin 4.1 g/dL (1.3-4.6) 05/28/24 16:07 Urine Color Yellow (Yellow) 05/28/24 16:34 Urine Appearance Cloudy (CLEAR) A 05/28/24 16:34 Urine pH 5 (5-7) 05/28/24 16:34 Ur Specific Stephen 1.025 (1.005-1.030) 05/28/24 16:34 Urine Protein 3+ (Negative) H 05/28/24 16:34 Urine Glucose (UA) Norm (Normal) 05/28/24 16:34 Urine Ketones 1+ (Negative) H 05/28/24 16:34 Urine Blood 2+ (Negative) H 05/28/24 16:34 Urine Nitrate Positive (Negative) A 05/28/24 16:34 Urine Bilirubin 1+ (Negative) H 05/28/24 16:34 Urine Urobilinogen 4 mg/dL (Negative) H 05/28/24 16:34 Ur Leukocyte Esterase 2+ (Negative) H 05/28/24 16:34 Urine RBC 25-40 /hpf (0-2) H 05/28/24 16:34 Urine WBC 10-15 /hpf (0-5) H 05/28/24 16:34 Ur Squamous Epith Cells 5-10 /hpf (0-5) H 05/28/24 16:34 Amorphous Sediment Not Reportable 05/28/24 16:34 Urine Bacteria 2+ /hpf (NONE) H 05/28/24 16:34 Adenovirus (PCR) Not detected (NOT DETECT) 05/28/24 18:28 C. pneumoniae DNA (PCR) Not detected (NOT DETECT) 05/28/24 18:28 Coronavirus 229E (PCR) Not detected (NOT DETECT) 05/28/24 18:28 Human Metapneumovir PCR Not detected (NOT DETECT) 05/28/24 18:28 Influenza A (H1) PCR Not detected (NOT DETECT) 05/28/24 18:28 Influ A (H1/09) PCR Not detected (NOT DETECT) 05/28/24 18:28 Influenza A (H3) PCR Not detected (NOT DETECT) 05/28/24 18:28 Influenza Type A (PCR) Not detected (NOT DETECT) 05/28/24 18:28 Influenza Type B (PCR) Not detected (NOT DETECT) 05/28/24 18:28 M. pneumoniae (PCR) Not detected (NOT DETECT) 05/28/24 18:28 Parainfluenza 1 (PCR) Not detected (NOT DETECT) 05/28/24 18:28 Parainfluenza 2 (PCR) Not detected (NOT DETECT) 05/28/24 18:28 Parainfluenza 3 (PCR) Not detected (NOT DETECT) 05/28/24 18:28 Parainfluenza 4 (PCR) Not detected (NOT DETECT) 05/28/24 18:28 RSV Type A (PCR) Not detected (NOT DETECT) 05/28/24 18:28 RSV Type B (PCR) Not detected (NOT DETECT) 05/28/24 18:28 Entero/Rhino (PCR) Not detected (NOT DETECT) 05/28/24 18:28 SARS-CoV-2 (PCR) Not detected (NOT DETECT) 05/28/24 18:28 All radiology interpretation(s) finalized by discharge Discharge Plan Discharge Patient Disposition: Admitted As Inpatient Admit Provider: Maddie Sanchez Clinical Impression: Hypercapnic respiratory failure, Chronic hypoxemic respiratory failure, Sepsis, Advanced dementia, Congestive heart failure, Urinary tract infection Condition: Stable Coding Level of Care Code ED Billing Representative for Karime Valles
[2024-05-28 17:00] LABS: Basophils % 0.6 %; Eosinophils % 0.4 %; Hematocrit 36.7 % (37-53); Lymphocytes # 0.7 10^3/uL (0.8-4.8); Lymphocytes % 10.4 %; Mean Corpuscular Hemoglobin 29.8 pg (27-33); Mean Corpuscular Volume 99.5 fl (82-101); Mean Platelet Volume 9.9 fL (7.4-10.4); Monocytes # 1.2 10^3/uL (0.2-0.9); Monocytes % 17.5 %; Neutrophils # 4.79 10^3/uL (1.8-7.7); Neutrophils % 70.8 %; Nucleated Red Blood Cells % 0 %; Platelet Count 236 10^3/cmm (157-399); Red Blood Count 3.69 10^6/uL (3.85-5.65); Red Cell Distribution Width 13.2 % (12.1-15.1); White Blood Count 6.76 10^3/uL (3.29-11.43)
[2024-05-28] MEDS: albuterol 2.5 mg/3 mL Neb INHALATION (17:06)
[2024-05-28] MEDS: ipratropium-albuterol 3 mL Neb INHALATION (17:06)
[2024-05-28 17:10] LABS: Bilirubin Urine 1+ (Negative); Blood Urine 2+ (Negative); Glucose Urine UA Norm (Normal); Ketones Urine 1+ (Negative); Leukocyte Esterase Urine 2+ (Negative); Nitrate Urine Positive (Negative); Protein Urine 3+ (Negative); Specific Gravity, Urine 1.025 (1.005-1.030); Urine Appearance Cloudy (CLEAR); Urine Color Yellow (Yellow); Urobilinogen Urine 4 mg/dL (Negative); pH Urine 5 (5-7)
[2024-05-28 17:11] LABS: Add Urine Culture? Yes; Bacteria Urine 2+ /hpf; RBC Urine 25-40 /hpf (0-2)
[2024-05-28] MEDS: methylPREDNISolone sod succ 125 mg/2 mL INJ IVP (17:12)
[2024-05-28] MEDS: meropenem 500 mg SDV IVP (17:14)
[2024-05-28] MEDS: linezolid premix 600 MG/300 ML PREMIX 300 MG IV (17:14)
[2024-05-28 17:23] LABS: Lactic Sepsis W/Reflex 0.7 mmol/L (0.5-2.2)
[2024-05-28 17:35] LABS: Alanine Aminotransferase < 5 U/L (0-41); Albumin Level 3.1 g/dL (3.5-5.2); Alkaline Phosphatase 78 U/L (40-130); Anion Gap 12.5 (5-19); Aspartate Amino Transferase 12 U/L (0-40); Blood Urea Nitrogen 23 mg/dL (8-23); C Reactive Protein 181.6 mg/L (0.0-4.9); Calcium 9.6 mg/dL (8.5-10.5); Carbon Dioxide 36 mmol/L (22-29); Chloride 102 mmol/L (98-107); Globulin 4.1 g/dL (1.3-4.6); Glucose 195 mg/dL (65-115); NT Pro B Type Natriuretic Pept 30117 pg/mL (0-450); Osmolality Calculated 311 mOsm/kg (285-295); Potassium 4.5 mmol/L (3.5-5.1); Sodium 146 mmol/L (136-145); Total Bilirubin 0.4 mg/dL (0.15-1.2); Total Protein 7.2 g/dL (6.6-8.7)
--- NOTE | 2024-05-28 18:10 | ECG_ITS ---
[facility] Test Date: 2024-05-28 Pat Name: Ramses Chapman Department: Room: Gender: Male Mid Level Business Analyst: : 1940 Requested By: Maddie Sanchez Order Number: [id number] Hipolito MD: Mundo Tolentino M.D. Measurements Intervals [place] Rate: 85 P: 62 MI: 182 QRS: 66 QRSD: 86 T: 60 QT: 364 QTc: 433 Interpretive Statements SINUS RHYTHM WITH OCCASIONAL ECTOPIC PREMATURE COMPLEXES ST DEVIATION AND MODERATE T-WAVE ABNORMALITY, CONSIDER ANTERIOR ISCHEMIA [-0.1+ mV T-WAVE IN V3/V4] Compared to ECG 05/28/2024 16:24:11 Supraventricular tachycardia no longer present T-wave abnormality still present Possible ischemia still present Electronically Signed On 05-29-2024 10:32:31 CDT by Mundo Tolentino M.D. [email or web address]
--- NOTE | 2024-05-28 18:31 | P.HP_ITS ---
Providers/Chief Complaint 2 Admitting Physician: Maddie Sanchez MD Primary Care Provider: Rebecca Limon MD Chief Complaint: RESP. DISTRESS History of Present Illness Ramses Chapman Jr is a 84 year old male with a past medical history of advanced dementia, chronic urinary catheter in place with history of recurrent UTIs sent from [facility] detention today for altered mental status, fever and respiratory distress. No other history available at this time. Per review of notes it appears patient has a past history of COPD/asthma and evidence of severe airflow restriction on prior PFTs. Currently patient is found to have acute respiratory acidosis related to hypercapnic respiratory failure. ABG as noted below. Apparently patient is on hospice with [facility] but is listed as a full code with the detention.. I have placed a call to [facility] nursing line to receive an urgent call back regarding his overall goals of care since it is likely that patient may quired intubation during this course of admission. Additionally I have placed at least 6 phone calls to patient's who is his listed contact but she has not answered the phone. Our care coordination/telephonic case manager was able to reach the hospice nurse and was able to communicate with them. Patient is confirmed to be a full code. Hospice has rescinded hospice services for the time being to allow patient to be intubated and treated optimally. I have not personally yet received a call back from the service. Review of Systems 2 General: Reports: ROS unobtainable due to medical condition and ROS unobtainable due to mental status Medications/Allergies Home Medications Medication Instructions Recorded Confirmed Last Taken Type cetirizine 10 mg capsule PO 11/25/19 12/26/23 Unknown History gabapentin 800 mg tablet 800 mg PO TID 11/25/19 12/26/23 Unknown History magnesium oxide 400 mg PO QDAY 11/25/19 12/26/23 Unknown History sennosides 8.6 mg tablet 8.6 mg PO BID 11/25/19 12/26/23 Unknown History (Evac-U-Gen (sennosides)) Gait Belt #1 ea 06/23/21 12/26/23 Unknown Rx AFO to right with shoes #1 ea 02/02/22 12/26/23 Unknown Rx aspirin 81 mg tablet,delayed 81 mg PO DAILY 02/02/22 12/26/23 Unknown History release (Adult Aspirin Regimen) cholecalciferol (vitamin D3) 125 125 mcg PO DAILY 02/02/22 12/26/23 Unknown History mcg (5,000 unit) capsule coenzyme Q10 200 mg capsule (Co 200 mg PO DAILY 02/02/22 12/26/23 Unknown History Q-10) famotidine 20 mg tablet 20 mg PO DAILY 02/02/22 12/26/23 Unknown History insulin aspart U-100 100 unit/mL 30 unit SUBCUT BID 02/02/22 12/26/23 Unknown History subcutaneous solution insulin glargine U-300 conc 300 70 unit SUBCUT DAILY 02/02/22 12/26/23 Unknown History unit/mL (3 mL) subcutaneous pen lactulose 10 gram/15 mL oral 10 g PO DAILY 02/02/22 12/26/23 Unknown History solution omega 8-tfs-knn-fish oil 1,000 mg 1 cap PO DAILY 02/02/22 12/26/23 Unknown History (120 mg-180 mg) capsule (Fish Oil) omega-3 fatty acids 1,250 mg 1,250 mg PO BID 02/02/22 12/26/23 Unknown History capsule albuterol sulfate 90 mcg/actuation 2 puff inhalation Q6H PRN 06/14/22 12/26/23 Unknown History aerosol inhaler fluticasone 250 mcg-salmeterol 50 1 inh inhalation BID #60 ea 06/20/22 12/26/23 Unknown Rx mcg/dose blistr powdr for inhalation (Wixela Inhub) Oxygen Therapy #1 ea 08/03/22 12/26/23 Unknown Rx citalopram 40 mg tablet 40 mg PO QDAY 08/03/22 12/26/23 Unknown History cyclobenzaprine 10 mg tablet 10 mg PO BID 08/03/22 12/26/23 Unknown History ipratropium 0.5 mg-albuterol 3 mg 3 ml inhalation Q6H PRN wheezing 08/03/22 12/26/23 Unknown Rx (2.5 mg base)/3 mL nebulization #180 mL soln montelukast 10 mg tablet 10 mg PO DAILY #30 tabs 08/03/22 12/26/23 Unknown Rx (Singulair) nebulizers #1 ea 08/03/22 12/26/23 Unknown Rx rosuvastatin 10 mg tablet 5 mg PO DAILY 08/03/22 12/26/23 Unknown History triamterene 75 0.5 tab PO QAM 08/03/22 12/26/23 Unknown History mg-hydrochlorothiazide 50 mg tablet galantamine 4 mg tablet 4 mg PO BID #60 tabs 12/26/23 Unknown Rx Allergies Allergy/AdvReac Type Severity Reaction Status Date / Time lovastatin Allergy Unknown Unknown Verified 05/28/24 16:51 pravastatin Allergy Unknown Unknown Verified 05/28/24 16:51 rosuvastatin [From Crestor] Allergy Unknown Unknown Verified 05/28/24 16:51 propoxyphene Allergy unknown Verified 05/28/24 16:51 simvastatin Allergy unknown Verified 05/28/24 16:51 PFSH Acute 2 PFSH: Medical History Diabetic neuropathy Sprain of other ligament of right ankle, subsequent encounter Family History Father Asthma Mother Asthma Social History Smoking and tobacco/nicotine status: former use of tobacco/nicotine Quit status (tobacco/nicotine): has quit using Year quit tobacco: 1995 Former quit date comment: 1ppd x years Alcohol intake: never Substance/Drug Use: never Vitals/I&O/Wt Last Vital Signs Temp 100.1 F H 05/28/24 16:36 Pulse 89 05/28/24 18:30 Resp 24 H 05/28/24 17:07 BP 152/87 05/28/24 18:30 Pulse Ox 95 05/28/24 18:30 O2 Del Method BiPAP 05/28/24 18:30 O2 Flow Rate 4 05/28/24 16:36 FiO2 40 05/28/24 17:10 Physical Exam 2 Narrative: General: Currently on a BiPAP, appears to be in respiratory distress, pale and diaphoretic. HEENT: PERRLA, pupils bilaterally equal and reactive, pallors not present Chest: Normal vesicular breath sounds, no added sounds, equal good air entry bilaterally CVS: S1-S2 regular, no murmurs, no tachycardia, no gallops, no rubs Abdomen: Soft, nontender, no organomegaly, bowel sounds present Neuro: Unable to assess, patient obtunded. Extremities: Bilateral lower extremity swelling, Data 05/28/24 16:07 05/28/24 16:07 Micro: Microbiology 05/28/24 17:00 Blood Culture - Preliminary Blood SPECIMEN COLLECTED 05/28/24 17:00 Blood Culture - Preliminary Blood SPECIMEN COLLECTED ABG Interpretation 1: 05/28/24 05/28/24 NAME: Ramses Chapman Jr LOC: U #: [id number] AGE/SX: 84/M ROOM: R E05/28/[address]: Arlene Reyes MD : 1940 BED: D IS: FAX #: STATUS: REG ER TLOC: Spec : [id number] Mone: 05/28/24 Status: COMP Req : [id number] Recd: 05/28/24-[address]: Arlene Reyes MD Ordered: ABG Full Test Low Normal High Flag Reference Site ABG PH Result 7.22 L 7.35-7.45 ABG PCO2 90.1 *H 35-45 mmHg CRITICAL RESULTS CALLED BY Jazzmine Gregg AND READ BACK BY KOFI @ 1645. CRITICAL RESULTS CALLED BY Jazzmine Gregg AND READ BACK BY KOFI@ 1633. --- 05/28/24 1833 --- ABG PCO2 previously reported as: 90.1 *H mmHg CRITICAL RESULTS CALLED BY Jazzmine Gregg AND READ BACK BY KOFI @ 1645. ABG PO2 74.5 L 80.0-100.0 mmHg ABG HCO3 36.9 H 22-26 mmol/L ABG BE 6.6 H -2.0-2.0 mmol/L ABG O2 Sat 92.8 FIO2 36.0 % NA - ABG 146.0 H 131-143 mmol/L K - ABG 4.4 3.5-5.0 mmol/L ArtBld P02 FiO2 206 BG OP ID CAK Julius Test Pos O2 Device NC Blood Gas LPM 4.0 % Sample Type Arterial Sample Site Brachial, left ABG Hematocrit 34.5 L 42-52 % A-aDO2 9.9 5-10 mmHg CA++-ABG 1.3 1.1-1.4 mmol/L tHb 11.2 L 14-18 g/dL O2Hb 90.8 L 95-100 % O2Hb 2.0 0.4-20.1 %THgb MetHb 0.2 L 0.4-1.5 % Glu-ABG 203.0 H 70-115 mg/dL A&P Assessment and plan (1) Fever: (2) Hypercapnic respiratory failure: (3) Elevated brain natriuretic peptide (BNP) level: (4) Acute exacerbation of chronic obstructive pulmonary disease (COPD): Plan 84-year-old male with history of dementia, chronic urinary retention, reportedly also with history of UTIs in the past, brought from detention today. No pertinent history available. Patient noted to be in respiratory distress with evidence of acute hypercapnic respiratory failure. Per notes appears to have a past history of COPD/asthma, presumably this is acute on chronic exacerbation. My grossly elevated BNP at 30,000, unknown past baseline. May have CHF. Admit to ICU Currently on BiPAP, obtain blood gas after being 1 hour. If CO2 continues to increase then would intubate as the neck step. Lasix 40 mg IV every 12 hours Stat EKG and troponin series to assess for underlying cardiac event. CTA of the chest to evaluate for PE Methylprednisolone 40 mg IV every 8 hours DuoNeb every 6 hours and budesonide 0.5 mg twice daily Empiric antibiotics for possible UTI with piperacillin/tazobactam. He has received additional dose of linezolid 600 mg in the emergency room. N.p.o. Insulin sliding scale Respiratory viral panel is pending at this time. Unable to reach the family for goals of care discussion. Patient on hospice services with [facility], uncertain as to what is the indication for this, awaiting callback from [facility]. However confirmed to be full code, please see my note above. DVT prophylaxis: Lovenox 40 Full code , hospice services rescinded for the time being. Attestations 2 Medical Necessity Statement*: Greater than 2 midnight admission is anticipated Critical Care Time: The high probability of a clinically significant, sudden or life threatening deterioration of the patient's [respiratory, ID] system(s) required my full and direct attention, intervention and personal management. The critical care time is as shown. This time is in addition to time spent performing any reported procedures but includes the following: [x] Data and vital sign review and interpretation [x] Patient assessment, examination and intervention [x] Documentation [x] Medication orders and management Critical Care Time (min): 60 Coding Level of Care Code Acute Code for Chg Fwd Diagnoses Fever R50.9 Hypercapnic respiratory failure J96.92 Elevated brain natriuretic peptide (BNP) level R79.89 Acute exacerbation of chronic obstructive pulmonary disease (COPD) J44.1
[2024-05-28 18:33] LABS: ABG PH Result 7.31 (7.35-7.45); Arterial Blood Gas Hematocrit 33.8 % (42-52); Base Excess ABG 7.2 mmol/L (-2.0-2.0); Blood Gas Allen Test Pos; Blood Gas Operator Identificat CAK; Blood Gas Sample Site Brachial, left; Blood Gas Sample Type Arterial; HCO3 ABG 35.3 mmol/L (22-26); Oxygen Device BIPAP; PO2 FiO2 Ratio Arterial Blood 180
[2024-05-28 18:33] LABS: ABG PCO2 90.1 mmHg (35-45)
--- NOTE | 2024-05-28 18:40 | CTR_ITS ---
PROCEDURE INFORMATION: Exam: CTA Chest With Contrast Exam date and time: 05/28/2024 9:44 PM Age: 84 years old Clinical indication: Screening exam; Other screening; Additional info: Assess for pe TECHNIQUE: Imaging protocol: Computed tomographic angiography of the chest with contrast. Exam focused on the arteries. Sagittal and coronal reformatted images were created and reviewed. 3D rendering (Not supervised by radiologist): MIP and/or 3D reconstructed images were created by the technologist. Radiation optimization: All CT scans at this facility use at least one of these dose optimization techniques: automated exposure control; mA and/or kV adjustment per patient size (includes targeted exams where dose is matched to clinical indication); or iterative reconstruction. Contrast material: OMNI 350; Contrast volume: 100 ml; Contrast route: INTRAVENOUS (IV); COMPARISON: CR XR chest 1V portable [id number] 05/28/2024 4:33 PM RADIATION DOSE METRICS: Total DLP (mGy-cm): 597 FINDINGS: Pulmonary arteries: Focal nonocclusive pulmonary embolus in the lateral segmental branch of the left lower lobe pulmonary artery (series 6, images 320-338). Aorta: Moderate atherosclerotic changes in the visualized arteries. No evidence for aortic aneurysm. Evaluation for aortic dissection is limited due to the phase of contrast-enhancement. Lungs: Mucous plugging in the right lower lobe bronchus. Compressive atelectasis in the posterior lungs, most pronounced in the lower lobes. No pulmonary parenchymal nodules or masses. Pleural spaces: Large bilateral pleural effusions. No pneumothorax. Heart: Mild enlargement of the heart. The RV LV ratio is 1.0, which is mildly elevated and suspicious for right heart strain. Coronary arteries: Moderate atherosclerotic calcification in the coronary arteries. Esophagus: The esophagus is unremarkable. Lymph nodes: No lymphadenopathy. Liver: The visualized liver is unremarkable. Gallbladder and biliary ducts: The gallbladder is unremarkable. No biliary ductal dilatation. No dilatation of the visualized bile ducts. Pancreas: Moderate atrophy of the pancreatic parenchyma. No pancreatic ductal dilatation. Pancreatic parenchymal calcifications, consistent with sequela of chronic pancreatitis. Spleen: The visualized spleen is unremarkable. Adrenal glands: The right and left adrenal glands are unremarkable. Kidneys and ureters: The visualized right kidney is unremarkable. Indeterminate hyperdense focus in the left kidney. Hounsfield units show density greater than expected for simple fluid. This measures 5.0 x 5.1 cm (series 6, image 576). Bones/joints: Multilevel degenerative changes of varying severity in the visualized spine. Old, mild compression deformity of T12. Soft tissues: No acute abnormality in the extrathoracic soft tissues. CT/CT angio chest PE protcl [id number] IMPRESSION: 1. Focal nonocclusive pulmonary embolus in the lateral segmental branch of the left lower lobe pulmonary artery. 2. The RV LV ratio is 1.0, which is mildly elevated and suspicious for right heart strain. 3. Mucous plugging in the right lower lobe bronchus. 4. Large bilateral pleural effusions with compressive atelectasis in the posterior lungs, most pronounced in the lower lobes. 5. Indeterminate hyperdense focus in the visualized left kidney. This could represent a hemorrhagic/proteinaceous cyst. 6. Incidental/nonacute findings are listed in the report.
[2024-05-28 18:48] LABS: Troponin(5th) Baseline 245 ng/L (0-15)
[2024-05-28 18:51] LABS: Troponin 5 2HR Delta -10.9 ABS# (0-10)
[2024-05-28 18:52] LABS: Troponin 5 2HR 234.1 ng/L (0-15)
[2024-05-28] MEDS: enoxaparin 100 mg/mL Syringe SUBCUT (19:35)
[2024-05-28] MEDS: aspirin 300 mg Supp PR (19:36)
[2024-05-28 20:27] LABS: Adenovirus Not Detected (NOT DETECT); Chlamydia Pneumoniae Not Detected (NOT DETECT); Coronavirus 229E,HKU1,NL63,OC4 Not Detected (NOT DETECT); Human Metapneumovirus Not Detected (NOT DETECT); Human Rhinovirus/Enterovirus Not Detected (NOT DETECT); Influenza A Not Detected (NOT DETECT); Influenza A H1 Not Detected (NOT DETECT); Influenza A H1-2009 Not Detected (NOT DETECT); Influenza A H3 Not Detected (NOT DETECT); Influenza B Not Detected (NOT DETECT); Mycoplasma Pneumoniae Not Detected (NOT DETECT); Parainfluenza Virus Type 1 Not Detected (NOT DETECT); Parainfluenza Virus Type 2 Not Detected (NOT DETECT); Parainfluenza Virus Type 3 Not Detected (NOT DETECT); Parainfluenza Virus Type 4 Not Detected (NOT DETECT); Respiratory Syncytial Virus A Not Detected (NOT DETECT); Respiratory Syncytial Virus B Not Detected (NOT DETECT); SARS-COV-2 Not Detected (NOT DETECT)
[2024-05-28] MEDS: insulin lispro 100 unit/1 mL SUBCUT (22:36)
[2024-05-28] MEDS: FUROsemide 10 mg/mL SDV 4mL 40 MG IVP (22:36)
[2024-05-28] MEDS: pantoprazole 40 mg SDV IVP (22:37)
[2024-05-28] MEDS: piperacillin-tazobactam 3.375 GM in sodium chloride 0.9% (plus) 50 ML IV (22:37)
--- NOTE | 2024-05-28 23:18 | PC.NURSE ---
Replace dodd: Patient's dodd catheter had sediment built up, Dr. Garza gave telephone orders to replace dodd.
--- NOTE | 2024-05-28 23:25 | ECG_ITS ---
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 Measurements Intervals [place] Rate: 65 P: 77 MA: 163 QRS: 101 QRSD: 98 T: 150 QT: 418 QTc: 436 Interpretive Statements SINUS RHYTHM RIGHT AXIS DEVIATION [QRS AXIS > 100] ST DEVIATION AND MODERATE T-WAVE ABNORMALITY, CONSIDER ANTERIOR ISCHEMIA [-0.1+ mV T-WAVE IN V3/V4] Compared to ECG 05/28/2024 18:32:19 Right-axis deviation now present T-wave abnormality still present Possible ischemia still present Electronically Signed On 05-29-2024 10:34:05 CDT by Mundo Tolentino M.D. [id number]
[2024-05-29] VITALS (106 sets, daily range): BP systolic 95–132; BP diastolic 49–78; PULSE 56–86; RESP 0–31; TEMP 36.2–36.9; O2SAT 74–100; BMI 29.2
[2024-05-29] MEDS: methylPREDNISolone sod succ 40 mg/mL INJ IVP ×3 (00:17→17:17)
--- NOTE | 2024-05-29 01:38 | PC.NURSE ---
Low Spo2: Upon assessing patient, spo2 was found to be maintaining at 70%. Fio2 was turned up to 100% with little improvement, RT at bedside at this time. Dr. Garza was notified of the situation and gave telephone orders for an ABG. After repositioning and continued Fio2 at 100%, spo2 returned to 90s.
[2024-05-29 01:41] LABS: ABG PCO2 57.4 mmHg (35-45); ABG PH Result 7.41 (7.35-7.45); Alveolar-Arterial Oxygen Gradi 78.9 mmHg (5-10); Arterial Blood Gas Hematocrit 35.1 % (42-52); Base Excess ABG 9.8 mmol/L (-2.0-2.0); Blood Gas Operator Identificat JB; Blood Gas Sample Site Brachial, right; Blood Gas Sample Type Arterial; Carboxyhemoglobin 1.3 %THgb (0.4-20.1); HCO3 ABG 36.3 mmol/L (22-26); HGB O2 Sat 77.6 % (95-100); Ionized Calcium Level - ABG 1.3 mmol/L (1.1-1.4); Methemoglobin 0.7 % (0.4-1.5); Oxygen Device BIPAP; Oxygen Saturation ABG 79.3; PO2 ABG 40.4 mmHg (80.0-100.0); PO2 FiO2 Ratio Arterial Blood 40; Potassium Level - ABG 4.1 mmol/L (3.5-5.0); Total Hemoglobin 11.4 g/dL (14-18)
--- NOTE | 2024-05-29 01:44 | PC.NURSE ---
This nurse attempted to call [facility] for additional information, this nurse also attempted to call patient's for an update.
[2024-05-29] MEDS: ipratropium-albuterol 3 mL Neb INHALATION ×4 (02:00→19:47)
[2024-05-29 02:08] LABS: Troponin 5 6HR Delta -24.9 ng/L (0-12)
[2024-05-29 02:09] LABS: Troponin 5 6HR 220.1 ng/L (0-15)
--- NOTE | 2024-05-29 04:21 | PC.NURSE ---
Need for suctioning: Patient's secretions had increased and required oral suctioning, Dr. Garza was contacted and gave a telephone order for a ONCE scopolamine patch and naso tracheal suctioning PRN.
[2024-05-29 04:44] LABS: ABG PCO2 57.5 mmHg (35-45); ABG PH Result 7.38 (7.35-7.45); Alveolar-Arterial Oxygen Gradi 60.6 mmHg (5-10); Arterial Blood Gas Hematocrit 41.8 % (42-52); Base Excess ABG 7.3 mmol/L (-2.0-2.0); Blood Gas Operator Identificat JDB; Blood Gas Sample Site Brachial, right; Blood Gas Sample Type Arterial; Carboxyhemoglobin 0.7 %THgb (0.4-20.1); HCO3 ABG 34.3 mmol/L (22-26); HGB O2 Sat 98.5 % (95-100); Ionized Calcium Level - ABG 1.3 mmol/L (1.1-1.4); Methemoglobin 0.8 % (0.4-1.5); Oxygen Device BIPAP; Oxygen Saturation ABG 99.9; PO2 FiO2 Ratio Arterial Blood 178; Potassium Level - ABG 3.8 mmol/L (3.5-5.0); Total Hemoglobin 13.6 g/dL (14-18)
[2024-05-29] MEDS: scopolamine 1.5 Patch 1 PATCH TRANSDERMA (05:30)
[2024-05-29 05:40] LABS: Hematocrit 37.4 % (37-53); Lymphocytes # 0.4 10^3/uL (0.8-4.8); Lymphocytes % 10.4 %; Mean Corpuscular HGB Conc 29.9 g/dL (30-55); Mean Corpuscular Hemoglobin 29.3 pg (27-33); Mean Corpuscular Volume 97.9 fl (82-101); Mean Platelet Volume 9.9 fL (7.4-10.4); Monocytes # 0.1 10^3/uL (0.2-0.9); Monocytes % 2.9 %; Neutrophils # 3.33 10^3/uL (1.8-7.7); Neutrophils % 86.4 %; Nucleated Red Blood Cells % 0 %; Platelet Count 222 10^3/cmm (157-399); Red Blood Count 3.82 10^6/uL (3.85-5.65); Red Cell Distribution Width 12.9 % (12.1-15.1); White Blood Count 3.85 10^3/uL (3.29-11.43)
[2024-05-29 05:54] LABS: Alanine Aminotransferase < 5 U/L (0-41); Albumin Level 3.1 g/dL (3.5-5.2); Alkaline Phosphatase 79 U/L (40-130); Anion Gap 19.9 (5-19); Aspartate Amino Transferase 11 U/L (0-40); Blood Urea Nitrogen 24 mg/dL (8-23); Calcium 9.7 mg/dL (8.5-10.5); Carbon Dioxide 29 mmol/L (22-29); Chloride 100 mmol/L (98-107); Creatinine Clr Calc Pharmacy 60.8895; Globulin 4.6 g/dL (1.3-4.6); Glucose 213 mg/dL (65-115); Osmolality Calculated 310 mOsm/kg (285-295); Potassium 3.9 mmol/L (3.5-5.1); Sodium 145 mmol/L (136-145); Total Bilirubin 0.4 mg/dL (0.15-1.2); Total Protein 7.7 g/dL (6.6-8.7)
[2024-05-29] MEDS: enoxaparin 100 mg/mL Syringe SUBCUT ×2 (06:27→19:44)
[2024-05-29] MEDS: piperacillin-tazobactam 3.375 GM in sodium chloride 0.9% (plus) 50 ML IV ×3 (06:27→22:18)
[2024-05-29 07:24] LABS: Glucose Point of Care 226 mg/dL (70-110)
[2024-05-29 07:24] LABS: Glucose Point of Care 215 mg/dL (70-110)
[2024-05-29] MEDS: budesonide 0.5 mg/2 mL Neb INHALATION ×2 (07:52→19:47)
--- NOTE | 2024-05-29 08:56 | PC.NURSE ---
Nurse called [facility], Spoke to nurse Queen who is familiar with Ramses ruby.... Baseline mental status is oriented to name only. Patient is a full code. He was on hospice care at [facility], but after respiratory decline, his made the decision to have him sent to the hospital and change code status from DNR/comfort measures to full code.
[2024-05-29] MEDS: insulin lispro 100 unit/1 mL SUBCUT ×4 (09:05→20:20)
[2024-05-29] MEDS: FUROsemide 10 mg/mL SDV 4mL 40 MG IVP ×2 (09:13→22:19)
--- NOTE | 2024-05-29 10:48 | PC.NURSE ---
Low SP02.... at approximately 0930, shortly after repositioning patient, patient became hypoxic, SPO2 in the mid 70's. Patient found to have a large amount of oral secretions. Secretions suctioned with yaunker. No gag reflex present. After suctioning SPO2 improved slightly. Nurse placed patient back in right side lying position and SPO2 improved, went back into the mid 90's. Patient appears to only tolerate right side lying position. 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 Nurse has concerns for pressure injury development. Respiratory status only allows right side lying, patient has bilateral bruising to buttocks. Pillows placed and frequently repositioning pillows to change pressure points, but patient does not tolerate meaningful repositions.
[2024-05-29 13:26] LABS: Glucose Point of Care 187 mg/dL (70-110)
--- NOTE | 2024-05-29 16:51 | P.PN_ITS ---
Subjective 2 Subjective: Patient is clinically better today. He is more awake, alert. Found to have a PE. Right heart strain noted. Echocardiogram findings as below. He is currently able to tell me his name, date of and age, he is disoriented as to his whereabouts, unable to have a full conversation which is close to his baseline. Was able to get in touch with the , number listed in the chart was incorrect. She confirms that patient was hospice due to advanced dementia at home initially. Then he went into a halfway as his was unable to care for him due to her own personal health issues. It appears hospice was continued at the halfway. Medications: Reviewed: Yes Vitals/I&O/Wt Last Vital Signs Temp 98.0 F 05/29/24 12:45 Pulse 82 05/29/24 14:45 Resp 17 05/29/24 14:45 BP 100/54 05/29/24 14:45 Pulse Ox 93 05/29/24 14:45 O2 Del Method Heated High Flow 05/29/24 13:41 O2 Flow Rate 40 05/29/24 14:41 FiO2 40 05/29/24 14:41 05/29/24 05/29/24 05/29/24 06:59 14:59 22:59 Intake Total 50 / 50 50 / 50 Output Total 400 / 400 400 / 400 Balance -350 / -350 -350 / -350 Weight last 48 hrs Weight 94.914 kg Weight 93.95 kg Weight 93.95 kg Physical Exam 2 Narrative: General: No acute distress, AO x1 HEENT: PERRLA, pupils bilaterally equal and reactive, pallors not present Chest: Normal vesicular breath sounds, no added sounds, equal good air entry bilaterally CVS: S1-S2 regular, no murmurs, no tachycardia, no gallops, no rubs Abdomen: Soft, nontender, no organomegaly, bowel sounds present Neuro: No focal deficits, alert, awake, answering basic questions. Urinary Catheter Management: Ruiz: Cath Placed During This Visit: yes Reason for Continuing Indwelling Catheter: Accurate Measurement of Urinary Output in Critically Ill Patients Urinary Catheter Date of Insertion: 05/28/24 Urinary Catheter Time of Insertion: 23:17 Data 05/29/24 04:17 05/29/24 04:17 Micro: Microbiology 05/28/24 17:00 Blood Culture - Preliminary Blood SPECIMEN COLLECTED 05/28/24 17:00 Blood Culture - Preliminary Blood SPECIMEN COLLECTED A&P Assessment and plan (1) Fever: (2) Hypercapnic respiratory failure: (3) Elevated brain natriuretic peptide (BNP) level: (4) Acute exacerbation of chronic obstructive pulmonary disease (COPD): Plan 84-year-old male with history of dementia, chronic urinary retention, reportedly also with history of UTIs in the past, brought from halfway today. No pertinent history available. Patient noted to be in respiratory distress with evidence of acute hypercapnic respiratory failure. Per notes appears to have a past history of COPD/asthma, presumably this is acute on chronic exacerbation. My grossly elevated BNP at 30,000, unknown past baseline. May have CHF. Admit to ICU Currently on BiPAP, obtain blood gas after being 1 hour. If CO2 continues to increase then would intubate as the neck step. Lasix 40 mg IV every 12 hours Stat EKG and troponin series to assess for underlying cardiac event. CTA of the chest to evaluate for PE Methylprednisolone 40 mg IV every 8 hours DuoNeb every 6 hours and budesonide 0.5 mg twice daily Empiric antibiotics for possible UTI with piperacillin/tazobactam. He has received additional dose of linezolid 600 mg in the emergency room. N.p.o. Insulin sliding scale Respiratory viral panel is pending at this time. Unable to reach the family for goals of care discussion. Patient on hospice services with [facility], uncertain as to what is the indication for this, awaiting callback from [facility]. However confirmed to be full code, please see my note above. DVT prophylaxis: Lovenox 40 Full code , hospice services rescinded for the time being Plan for today may 29, 2024 CT of the chest revealed nonocclusive PE in the lateral segmental branch of the left lower lobe pulmonary artery. RV LV ratio was 1.0 suspicious for right heart strain. There was mucus plugging in the right lower lobe bronchus. There are large bilateral pleural effusions with compressive atelectasis in the posterior lungs. He is net -700 cc last 24 hours. Blood pressure has been stable. He is more alert and awake with his hypercapnia improving. CO2 is now down to 57.5. Blood and urine cultures are pending. Echocardiogram shows severe hypokinesia of the mid and apical septum and anteroseptal segments. Moderate heavy diffuse hypokinesia of the inferior wall with LVEF 35 to 40%. Grade 1 diastolic dysfunction normal to mildly elevated filling pressures. Normal RV with slightly diminished EF. No previous echocardiograms to compare. With elevated troponins, above changes on echocardiogram may be call center support representative of NSTEMI. Patient also has a pulmonary embolism Plan: Continue Lovenox 1 mg/kg subcutaneously every 12 hours for treatment of PE and also for NSTEMI. Received 300 mg rectal aspirin yesterday, will start aspirin 81 mg p.o. daily; patient has several listed allergies to statins. Continue methylprednisolone 40 mg IV every 8 hours and scheduled nebulization for COPD exacerbation. Continue Lasix 40 mg IV every 12 hours for CHF, would presume this to be acute systolic heart failure given that no past history is available. Patient has bilateral large pleural effusions which may need thoracentesis if does not improve clinically. Had extensive discussion with patient's Dick Chapman today. She reports that patient has advanced dementia, he had become nonambulatory at baseline and thereafter was placed on hospice. She states that it was her understanding that hospice means end-of-life and that patient would be DNR/DNI, however it appears patient was asked regarding his own wishes at the time of hospice initiation and he stated that he would like to be full code. Discussed extensively with the that the patient currently does not appear to have any capacity to make medical decisions for himself. He is only able to tell me his name and age. He is disoriented as to his whereabouts. He cannot recollect any medical information that I have provided to him. I do not believe he currently has the capacity to make any medical decisions. Discussed with her that patient is at a high risk of respiratory compromise given the mucous plugging which may progress, current NSTEMI and PE, hypercapnic respiratory failure which required him to be on BiPAP through the night. I see morphine and Ativan on his home medication list which we will not be able to give him given that he was so drowsy yesterday and it may worsen hypercapnic respiratory failure. states that she would like some time to think about his overall goals of care, for now patient to continue to be a full code. We will continue all medical therapies directed towards treatment of PE, NSTEMI, hypercapnic respiratory failure including intubation and mechanical ventilation if needed. Continue IV antibiotics for UTI. Attestations 2 Medical Necessity Statement*: Continued admission for IV antibiotics, IV diuresis, anticoagulation Coding Level of Care Code Critical Care >/= 30 minutes Critical care time (in minutes): 60 The high probability of a clinically significant, sudden or life threatening deterioration, as referenced in this documentation, required my full and direct attention, intervention and personal management. The critical care time shown is in addition to time spent performing any reported separately billable procedures and includes the following: [x] Data and vital sign review and interpretation [x ] Patient assessment, examination and intervention [x] Medication orders and management [x] Patient/Family updates as able [x] Care Coordination and Documentation. Diagnoses Fever R50.9 Hypercapnic respiratory failure J96.92 Elevated brain natriuretic peptide (BNP) level R79.89 Acute exacerbation of chronic obstructive pulmonary disease (COPD) J44.1
[2024-05-29 17:48] LABS: Glucose Point of Care 201 mg/dL (70-110)
--- NOTE | 2024-05-29 18:34 | PC.NURSE ---
Shift Summary: total urine output of 1000mL. 3 episodes of desaturation requiring agressive oral suctioning and repositioning. Patient has spent a majority of the shift right side lying as it is the only position that he doesn't desaturate in. Mental status slightly improved, is oriented to name only, will occasionally be conversational and will make needs known. According to group home, this is his mental baseline.
[2024-05-29 20:52] LABS: Glucose Point of Care 202 mg/dL (70-110)
--- NOTE | 2024-05-29 22:12 | USCV_ITS ---
Ramses Chapman Age: 84 Gender: M : 1940 Exam Date: 05/29/2024 07:33 Ordering Phys: Maddie Sanchez MD Technologist: [place] [facility] [place]: [place]stem[place] BP: 124 / 79 HR: 65 Rhythm: Sinus Technical Quality: Very technically difficult study MEASUREMENTS (Male / Female) Normal Values 2D ECHO LV Diastolic Diameter PLAX 4.7 cm 4.2 - 5.9 / 3.9 - 5.3 cm IVS Diastolic Thickness 1.0 cm 0.6 - 1.0 / 0.6 - 0.9 cm IVS Systolic Thickness 1.1 cm LVPW Diastolic Thickness 1.2 cm 0.6 - 1.0 / 0.6 - 0.9 cm LVPW Systolic Thickness 1.4 cm LVOT Diameter 2.2 cm LV Ejection Fraction 2D Teich 33.7 % LV Ejection Fraction MOD 4C 34.2 % LV Ejection Fraction MOD 2C 49.8 % LV Ejection Fraction 2C AL 48.9 % LA Diameter 3.4 cm RA Systolic Volume 4C AL 59.6 ml RA Systolic Volume 4C MOD 55.9 ml M-MODE LA Ao Ratio MM 1.4 AV Cusp Separation MM 2.5 cm DOPPLER AV Peak Velocity 86.0 cm/s LVOT Peak Velocity 65.0 cm/s AV Area Cont Eq vti 3.3 cm squared AV Area Cont Eq pk 3.0 cm squared MV Peak Velocity 88.0 cm/s MV Area PHT 2.1 cm squared Mitral E to A Ratio 1.1 TR Peak Velocity 268.0 cm/s TR Peak Gradient 28.7 mmHg TV Peak E Velocity 55.0 cm/s Right Atrial Pressure 3.0 mmHg Pulmonary Artery Systolic Pressu 31.7 mmHg PV Peak Velocity 60.0 cm/s FINDINGS Left Ventricle Severe hypokinesia of the mid and apical septum and anteroseptal segments. Moderate heavy diffuse hypokinesia of the inferior wall. LV ejection fraction -35 to 40%, visual. Mildly dilated left ventricle.Grade I/IV diastolic dysfunction (abnormal relaxation filling pattern), normal to mildly elevated filling pressures. Right Ventricle Normal RV size with slightly diminished ejection fraction Right Atrium Normal right atrial size. Left Atrium Mildly increased left atrial size. Mitral Valve Mild mitral annular calcification. Mild mitral valve regurgitation. Aortic Valve Minimally thickened Tricuspid Valve Trace tricuspid valve regurgitation. Pulmonic Valve Pulmonic valve not well visualized. Pericardium No pericardial effusion. Aorta Normal aortic annulus size. IVC Inferior vena cava not visualized. CONCLUSIONS Severe hypokinesia of the mid and apical septum and anteroseptal segments. Moderate heavy diffuse hypokinesia of the inferior wall. LV ejection fraction -35 to 40%, visual. Mildly dilated left ventricle.Grade I/IV diastolic dysfunction (abnormal relaxation filling pattern), normal to mildly elevated filling pressures. Mildly increased left atrial size. Normal RV size with slightly diminished ejection fraction. Mild mitral annular calcification. Mild mitral valve regurgitation. Minimally thickened. Trace tricuspid valve regurgitation. Estimated pulmonary artery peak systolic pressure 32 mmHg There is no pericardial effusion. There are no intracardiac masses. No similar previous studies are available for comparison Dr Abigail Redd MD [facility] (Electronically Signed) Final Date: 29 May 2024 14:23 S
[2024-05-29] MEDS: pantoprazole 40 mg SDV IVP (22:18)
[2024-05-30] VITALS (78 sets, daily range): BP systolic 84–134; BP diastolic 44–77; PULSE 71–99; RESP 13–34; TEMP 36.4–37.4; O2SAT 78–100; BMI 28.5
[2024-05-30] MEDS: methylPREDNISolone sod succ 40 mg/mL INJ IVP ×3 (00:19→16:44)
[2024-05-30] MEDS: ipratropium-albuterol 3 mL Neb INHALATION ×4 (01:43→20:23)
[2024-05-30 05:36] LABS: Hematocrit 31.7 % (37-53); Lymphocytes # 0.4 10^3/uL (0.8-4.8); Lymphocytes % 10.5 %; Mean Corpuscular HGB Conc 30.6 g/dL (30-55); Mean Corpuscular Volume 94.6 fl (82-101); Mean Platelet Volume 10.1 fL (7.4-10.4); Monocytes # 0.2 10^3/uL (0.2-0.9); Monocytes % 4.4 %; Neutrophils # 3.06 10^3/uL (1.8-7.7); Neutrophils % 84.8 %; Nucleated Red Blood Cells % 0 %; Platelet Count 179 10^3/cmm (157-399); Red Blood Count 3.35 10^6/uL (3.85-5.65); Red Cell Distribution Width 13.1 % (12.1-15.1); White Blood Count 3.61 10^3/uL (3.29-11.43)
[2024-05-30 06:03] LABS: Alanine Aminotransferase < 5 U/L (0-41); Albumin Level 2.8 g/dL (3.5-5.2); Alkaline Phosphatase 59 U/L (40-130); Anion Gap 18.6 (5-19); Aspartate Amino Transferase 8 U/L (0-40); Blood Urea Nitrogen 30 mg/dL (8-23); Calcium 9.3 mg/dL (8.5-10.5); Carbon Dioxide 32 mmol/L (22-29); Chloride 99 mmol/L (98-107); Creatinine Clr Calc Pharmacy 66.3572; Globulin 3.8 g/dL (1.3-4.6); Glucose 189 mg/dL (65-115); Osmolality Calculated 313 mOsm/kg (285-295); Potassium 3.6 mmol/L (3.5-5.1); Sodium 146 mmol/L (136-145); Total Bilirubin 0.3 mg/dL (0.15-1.2); Total Protein 6.6 g/dL (6.6-8.7)
[2024-05-30] MEDS: piperacillin-tazobactam 3.375 GM in sodium chloride 0.9% (plus) 50 ML IV ×3 (06:24→22:11)
[2024-05-30] MEDS: enoxaparin 100 mg/mL Syringe SUBCUT ×2 (06:25→17:44)
[2024-05-30 07:20] LABS: Glucose Point of Care 213 mg/dL (70-110)
[2024-05-30] MEDS: budesonide 0.5 mg/2 mL Neb INHALATION ×2 (07:44→20:23)
[2024-05-30] MEDS: aspirin 81 mg EC Tablet PO (09:12)
[2024-05-30] MEDS: FUROsemide 10 mg/mL SDV 4mL 40 MG IVP (09:15)
[2024-05-30] MEDS: insulin lispro 100 unit/1 mL SUBCUT ×4 (09:16→21:02)
[2024-05-30 11:12] LABS: Glucose Point of Care 265 mg/dL (70-110)
--- NOTE | 2024-05-30 15:11 | PC.NURSE ---
Patient requests that we shave or clip his facial hair because his moustache keeps getting in his mouth when he is eating. is present and requested we shave it as well. Patient wants his hole face clipped, and moustache completely removed. Nurse clipped face with clippers available on unit per patient and his 's request.
--- NOTE | 2024-05-30 16:18 | P.PN_ITS ---
Subjective 2 Subjective: Patient is clinically improving today. He is much more alert and awake. Able to answer basic questions. Able to answer his name, date of , recognizes that he is in a medical facility. Attempts to wean down from heated high flow to nasal cannula today. Medications: Reviewed: Yes Vitals/I&O/Wt Last Vital Signs Temp 97.6 F 05/30/24 12:15 Pulse 84 05/30/24 14:00 Resp 16 05/30/24 13:23 BP 115/65 05/30/24 13:00 Pulse Ox 96 05/30/24 13:23 O2 Del Method High Flow Nasal Cannula 05/30/24 13:23 O2 Flow Rate 9 05/30/24 13:23 FiO2 40 05/30/24 07:47 05/30/24 05/30/24 05/30/24 06:59 14:59 22:59 Intake Total 530 / 1470 50 / 50 Output Total 600 / 1600 300 / 300 Balance -70 / -130 -250 / -250 Weight last 48 hrs Weight 92.986 kg Weight 94.914 kg Weight 93.95 kg Weight 93.95 kg Physical Exam 2 Narrative: General: No acute distress, AO x3 HEENT: PERRLA, pupils bilaterally equal and reactive, pallors not present Chest: Normal vesicular breath sounds, no added sounds, equal good air entry bilaterally CVS: S1-S2 regular, no murmurs, no tachycardia, no gallops, no rubs Abdomen: Soft, nontender, no organomegaly, bowel sounds present Neuro: No focal deficits, no facial deformity, AO x3, power 5/5 in all limbs Urinary Catheter Management: Ruiz: Cath Placed During This Visit: yes Reason for Continuing Indwelling Catheter: Accurate Measurement of Urinary Output in Critically Ill Patients Urinary Catheter Date of Insertion: 05/28/24 Urinary Catheter Time of Insertion: 23:17 Data 05/30/24 04:19 05/30/24 04:19 Micro: Microbiology 05/28/24 16:34 Urine Culture - Preliminary Urine,Clean Catch Gram Negative Rods 05/28/24 17:00 Blood Culture - Preliminary Blood NEGATIVE TO DATE 05/28/24 17:00 Blood Culture - Preliminary Blood NEGATIVE TO DATE A&P Assessment and plan (1) Fever: (2) Hypercapnic respiratory failure: (3) Elevated brain natriuretic peptide (BNP) level: (4) Acute exacerbation of chronic obstructive pulmonary disease (COPD): Plan 84-year-old male with history of dementia, chronic urinary retention, reportedly also with history of UTIs in the past, brought from senior care today. No pertinent history available. Patient noted to be in respiratory distress with evidence of acute hypercapnic respiratory failure. Per notes appears to have a past history of COPD/asthma, presumably this is acute on chronic exacerbation. My grossly elevated BNP at 30,000, unknown past baseline. May have CHF. Admit to ICU Currently on BiPAP, obtain blood gas after being 1 hour. If CO2 continues to increase then would intubate as the neck step. Lasix 40 mg IV every 12 hours Stat EKG and troponin series to assess for underlying cardiac event. CTA of the chest to evaluate for PE Methylprednisolone 40 mg IV every 8 hours DuoNeb every 6 hours and budesonide 0.5 mg twice daily Empiric antibiotics for possible UTI with piperacillin/tazobactam. He has received additional dose of linezolid 600 mg in the emergency room. N.p.o. Insulin sliding scale Respiratory viral panel is pending at this time. Unable to reach the family for goals of care discussion. Patient on hospice services with [facility], uncertain as to what is the indication for this, awaiting callback from [facility] [facility]. However confirmed to be full code, please see my note above. DVT prophylaxis: Lovenox 40 Full code , hospice services rescinded for the time being Plan for today may 29, 2024 CT of the chest revealed nonocclusive PE in the lateral segmental branch of the left lower lobe pulmonary artery. RV LV ratio was 1.0 suspicious for right heart strain. There was mucus plugging in the right lower lobe bronchus. There are large bilateral pleural effusions with compressive atelectasis in the posterior lungs. He is net -700 cc last 24 hours. Blood pressure has been stable. He is more alert and awake with his hypercapnia improving. CO2 is now down to 57.5. Blood and urine cultures are pending. Echocardiogram shows severe hypokinesia of the mid and apical septum and anteroseptal segments. Moderate heavy diffuse hypokinesia of the inferior wall with LVEF 35 to 40%. Grade 1 diastolic dysfunction normal to mildly elevated filling pressures. Normal RV with slightly diminished EF. No previous echocardiograms to compare. With elevated troponins, above changes on echocardiogram may be [employer] of NSTEMI. Patient also has a pulmonary embolism Plan: Continue Lovenox 1 mg/kg subcutaneously every 12 hours for treatment of PE and also for NSTEMI. Received 300 mg rectal aspirin yesterday, will start aspirin 81 mg p.o. daily; patient has several listed allergies to statins. Continue methylprednisolone 40 mg IV every 8 hours and scheduled nebulization for COPD exacerbation. Continue Lasix 40 mg IV every 12 hours for CHF, would presume this to be acute systolic heart failure given that no past history is available. Patient has bilateral large pleural effusions which may need thoracentesis if does not improve clinically. Had extensive discussion with patient's Dick Chapman today. She reports that patient has advanced dementia, he had become nonambulatory at baseline and thereafter was placed on hospice. She states that it was her understanding that hospice means end-of-life and that patient would be DNR/DNI, however it appears patient was asked regarding his own wishes at the time of hospice initiation and he stated that he would like to be full code. Discussed extensively with the that the patient currently does not appear to have any capacity to make medical decisions for himself. He is only able to tell me his name and age. He is disoriented as to his whereabouts. He cannot recollect any medical information that I have provided to him. I do not believe he currently has the capacity to make any medical decisions. Discussed with her that patient is at a high risk of respiratory compromise given the mucous plugging which may progress, current NSTEMI and PE, hypercapnic respiratory failure which required him to be on BiPAP through the night. I see morphine and Ativan on his home medication list which we will not be able to give him given that he was so drowsy yesterday and it may worsen hypercapnic respiratory failure. states that she would like some time to think about his overall goals of care, for now patient to continue to be a full code. We will continue all medical therapies directed towards treatment of PE, NSTEMI, hypercapnic respiratory failure including intubation and mechanical ventilation if needed. Continue IV antibiotics for UTI. May 30, 2024. Patient is clinically better today. He is much more alert and awake. Able to answer simple basic questions. Nonambulatory at baseline. Reduce steroids to methylprednisolone 40 mg IV every 12 hours today. Change Lasix from 40 mg IV every 12 hours to Lasix 60 mg p.o. twice daily. Overall clinical impression that of acute hypoxic hypercapnic respiratory failure related to a combination of COPD exacerbation, acute systolic CHF, bilateral pleural effusions and pulmonary embolism. Continue Lovenox 1 mg/kg subcutaneously every 12 hours. Aim to transition to Eliquis over the next 24 hours. Attempts to wean down oxygen today from heated high flow to nasal cannula. Anticipate discharge in the upcoming 24 to 48 hours if patient does well with these interventions. Transfer out of ICU to [facility] today. is currently at bedside. Discussed goals of care again extensively. Patient to continue to be full code for now. Urine culture showing gram-negative rods pending further identification. Continue piperacillin/tazobactam until culture results are available. Attestations 2 Medical Necessity Statement*: Continued admission for IV steroids, transition to oral diuretics, continue IV antibiotics, weaning oxygen Coding Level of Care Code Acute Code for [facility] Diagnoses Fever R50.9 Hypercapnic respiratory failure J96.92 Elevated brain natriuretic peptide (BNP) level R79.89 Acute exacerbation of chronic obstructive pulmonary disease (COPD) J44.1
[2024-05-30 16:51] LABS: Glucose Point of Care 257 mg/dL (70-110)
--- NOTE | 2024-05-30 17:33 | PC.NURSE ---
transferred patient to [facility] [place]. report given to Jae MARCOS. No belonings to go with patient. NUrse called Dick Chapman and advised he has been transferred to [facility] [place].
[2024-05-30 20:40] LABS: Glucose Point of Care 269 mg/dL (70-110)
[2024-05-31] VITALS (9 sets, daily range): BP systolic 131–156; BP diastolic 74–93; PULSE 70–93; RESP 15–20; TEMP 36.4–36.8; O2SAT 90–98
[2024-05-31] MEDS: methylPREDNISolone sod succ 40 mg/mL INJ IVP (04:28)
[2024-05-31 05:48] LABS: Hematocrit 30.7 % (37-53); Lymphocytes # 0.5 10^3/uL (0.8-4.8); Lymphocytes % 13.9 %; Mean Corpuscular HGB Conc 30.9 g/dL (30-55); Mean Corpuscular Hemoglobin 29.1 pg (27-33); Mean Corpuscular Volume 93.9 fl (82-101); Monocytes # 0.2 10^3/uL (0.2-0.9); Monocytes % 6.3 %; Neutrophils % 79.5 %; Nucleated Red Blood Cells % 0 %; Platelet Count 177 10^3/cmm (157-399); Red Blood Count 3.27 10^6/uL (3.85-5.65); Red Cell Distribution Width 13.2 % (12.1-15.1); White Blood Count 3.52 10^3/uL (3.29-11.43)
[2024-05-31 06:12] LABS: Alanine Aminotransferase < 5 U/L (0-41); Alkaline Phosphatase 52 U/L (40-130); Anion Gap 14.2 (5-19); Aspartate Amino Transferase 10 U/L (0-40); Blood Urea Nitrogen 34 mg/dL (8-23); Calcium 9.1 mg/dL (8.5-10.5); Carbon Dioxide 34 mmol/L (22-29); Chloride 98 mmol/L (98-107); Creatinine Clr Calc Pharmacy 56.7471; Globulin 3.4 g/dL (1.3-4.6); Glucose 176 mg/dL (65-115); Osmolality Calculated 308 mOsm/kg (285-295); Potassium 3.2 mmol/L (3.5-5.1); Sodium 143 mmol/L (136-145); Total Bilirubin 0.3 mg/dL (0.15-1.2); Total Protein 6.4 g/dL (6.6-8.7)
[2024-05-31] MEDS: piperacillin-tazobactam 3.375 GM in sodium chloride 0.9% (plus) 50 ML IV (06:22)
[2024-05-31] MEDS: enoxaparin 100 mg/mL Syringe SUBCUT (06:24)
[2024-05-31 06:27] LABS: Glucose Point of Care 197 mg/dL (70-110)
[2024-05-31] MEDS: lidocaine 1% 5 ML in potassium chloride premix 100 ML 52.5 ML IV (08:30)
[2024-05-31] MEDS: insulin lispro 100 unit/1 mL SUBCUT ×2 (08:30→12:12)
[2024-05-31] MEDS: FUROsemide 40 mg Tablet 60 MG PO (08:30)
[2024-05-31] MEDS: citalopram 20 mg Tablet 40 MG PO (08:31)
[2024-05-31] MEDS: pantoprazole DR 40 mg Tablet PO (08:31)
[2024-05-31] MEDS: budesonide 0.5 mg/2 mL Neb INHALATION (08:43)
[2024-05-31] MEDS: ipratropium-albuterol 3 mL Neb INHALATION ×2 (08:43→14:35)
--- NOTE | 2024-05-31 09:35 | PC.SOCIAL ---
IMM Update pg 2 of IMM updated and reviewed w/ patient. Copy provided and copy dated, initialed and placed in chart.
--- NOTE | 2024-05-31 11:09 | P.DS_ITS ---
Discharge Providers Date of Admission: 05/28/24 20:00 Date of Discharge: May 31, 2024 Attending Provider at Admission: Maddie Sanchez MD Attending Provider at Discharge: Maddie Sanchez MD Primary Care Provider: Rebecca Limon MD Diagnoses at Discharge Discharge Diagnosis (1) Fever: Status: Acute (2) Hypercapnic respiratory failure: Status: Acute (3) Acute exacerbation of chronic obstructive pulmonary disease (COPD): Status: Acute (4) Pulmonary embolism: Status: Acute (5) Congestive heart failure: Status: Acute (6) Urinary tract infection: Status: Acute (7) Acute bronchitis: Status: Acute Reason for Visit Reason for Visit: RESP. DISTRESS Hospital Course Hospital Course 84-year-old male brought to the hospital on May 28, 2024 from [facility] for altered mental status fever and respiratory distress. Patient was obtunded at the time of admission. He was found to have acute respiratory acidosis related to hypercapnic respiratory failure. Patient was hospice at the [facility], however it appears this was rescinded after his presentation here and made the decision to pursue full medical care. Hospital course as outlined below # Acute hypercapnic respiratory failure. Likely multifactorial related to COPD exacerbation, acute bronchitis, pulmonary embolism and CHF. No prior ABGs available in the system to compare and comment with regards to chronicity, does have a past documented diagnosis of COPD. pCO2 was up to 90 upon admission. Patient was placed on BiPAP upon arrival and remained on BiPAP ventilation until the morning of May 29. Thereafter he was slowly weaned down to heated high flow initially, oxygen requirements continued to trend down, now on 5 L/min at the time of discharge. He was treated for acute COPD exacerbation with scheduled nebulization with DuoNeb every 6 hours, budesonide every 12 hours, IV methylprednisolone 40 mg IV every 8 hours. The latter has been transitioned to prednisone taper 60 mg to 10 mg over the course of next [address] of the chest had shown mucous plugging, cannot rule out possibility of acute bronchitis as have contributed to the COPD exacerbation. Levofloxacin 750 mg p.o. daily for the next 5 days to continue. He received empiric antibiotic treatment with piperacillin/tazobactam initially upon arrival. He was febrile to Tmax of 100.1 Fahrenheit on the day of admission, fever has now resolved. Continued DuoNeb, budesonide, prednisone taper and nightly BiPAP use at time of discharge. # Altered mental status Likely metabolic encephalopathy from hypercapnia Discontinued morphine Ativan and gabapentin at discharge as will contribute to somnolence predisposing to hypercapnia # Pulmonary embolism CTA of the chest showing focal nonocclusive PE in the lateral segmental branch of the left lower lobe pulmonary artery. RV LV ratio of 1.01. Mucous plugging in the right lower lobe bronchus. Large bilateral effusions with compressive atelectasis bilaterally. Received treatment with Lovenox 1 mg/kg subcutaneously every 12 hours during hospital stay. This has been transitioned to oral Eliquis 10 mg twice daily for the next 7 days, thereafter reduced dose to 5 mg twice daily for 90 days. Further anticoagulation after follow-up with primary care physician. # Acute systolic heart failure Would presume this to be a new diagnosis as no prior history or clinical data available. Bilateral large pleural effusions likely transudative as a result of CHF. He received Lasix 40 mg IV every 12 hours, transition to Lasix 40 mg p.o. twice daily to be continued at [facility]. Recommend to recheck kidney function and electrolytes in 3 to 4 days. # NSTEMI versus type II CA EKG had shown T wave inversions in leads V3 to V6, unable to comment on chronicity of the changes. Likely these are not acute. Troponins baseline at 245 downtrending at 2 hours at 234, downtrending to 20 at 6 hours. Echocardiogram was performed to assess for right heart strain. This showed severe hypokinesia of the mid and apical septum and anteroseptal segments. Moderate heavy diffuse hypokinesia of the inferior wall. LVEF of 35 to 40%. Mildly dilated left ventricle and grade 1 diastolic dysfunction. Normal RV with slightly diminished ejection fraction. No prior echocardiogram available to compare. Given troponin trend was downtrending without significant delta at 2 or 6 hours, would favor elevated troponins to be as a result of pulmonary embolism, however left-sided systolic dysfunction would not be easily explained this way. Uncertain how long patient has had these changes on the echocardiogram Would presume these to be new diagnosis of systolic heart failure since no other echocardiograms or other history available for comparison. Patient was treated with Lovenox 1 mg/kg subcutaneously every 12 hours in the hospital. Changed to Eliquis at the time of discharge for PE. Aspirin 81 mg added for possibility of type II CA is additionally contributing. May need to consider further ischemic workup as outpatient once patient has recovered from acute illness if it remains compatible with his overall goals of care.It appears patient is going back to [facility] on hospice but continuing treatment for acute medical conditions. # UTI Noted gram-negative rods preliminarily on urine culture. Pending identification. Discharged on empiric levofloxacin 750 mg p.o. daily. Final cultures would need to be followed after discharge. # Extensive goals of care discussion happened during the hospital stay. Patient's relates that patient is hospice at the [facility], she would like to continue this however still wants him to be treated for acute medical issues as they arise. All decision making discussed with as patient himself does not have any capacity to give consent due to advanced dementia. Her phone number is [phone]. Phone number has been updated in the chart. He is discharged today in medically optimized but chronically ill condition. Physical Exam Narrative: General: No acute distress, AO x1-2, much more alert and awake compared to admission HEENT: PERRLA, pupils bilaterally equal and reactive, pallors not present Chest: Normal vesicular breath sounds, no added sounds, reduced air entry at bilateral lung bases CVS: S1-S2 regular, no murmurs, no tachycardia, no gallops, no rubs Abdomen: Soft, nontender, no organomegaly, bowel sounds present Neuro: Moves bilateral upper extremities, attempts to self-feed, answers basic questions such as his name age yes and no to questions regarding pain, no facial deformity, AO x1-2, chronically bedbound Urinary Catheter Management: Ruiz: Cath Placed During This Visit: yes Reason for Continuing Indwelling Catheter: Accurate Measurement of Urinary Output in Critically Ill Patients Urinary Catheter Date of Insertion: 05/28/24 Urinary Catheter Time of Insertion: 23:17 Discharge Data Studies Completed and Pending Completed Studies During Hospitalization Category Date Time Status CTA PE [CT angio chest PE protcl [id number]] Routine Cat Scan 05/28/24 18:40 Completed XR chest 1V portable [id number] Stat Exams 05/28/24 16:25 Completed CV. echo complete* [id number] Routine Ultrasound 05/29/24 22:12 Completed Pending at discharge Category Date Time Status Blood Culture Stat Lab 05/28/24 17:00 Results Urine Culture Stat Lab 05/28/24 16:34 Results Radiology Impressions Chest X-Ray 05/28/24 16:25 IMPRESSION: 1. Interval development of moderate interstitial pulmonary edema with bilateral lower lobe atelectasis. 2. Interval development of small bilateral pleural effusions. Chest CTA 05/28/24 18:40 IMPRESSION: 1. Focal nonocclusive pulmonary embolus in the lateral segmental branch of the left lower lobe pulmonary artery. 2. The RV LV ratio is 1.0, which is mildly elevated and suspicious for right heart strain. 3. Mucous plugging in the right lower lobe bronchus. 4. Large bilateral pleural effusions with compressive atelectasis in the posterior lungs, most pronounced in the lower lobes. 5. Indeterminate hyperdense focus in the visualized left kidney. This could represent a hemorrhagic/proteinaceous cyst. 6. Incidental/nonacute findings are listed in the report. ADDENDUM: 05/28/24 [id number] THIS REPORT CONTAINS FINDINGS THAT MAY BE CRITICAL TO PATIENT CARE. The findings were verbally communicated via telephone conference with Dr. Hou at 10:49 PM CDT on 05/28/2024. The findings were acknowledged and understood. Laboratory Results WBC 3.52 10^3/uL (3.29-11.43) 05/31/24 05:29 RBC 3.27 10^6/uL (3.85-5.65) L 05/31/24 05:29 Hgb 9.50 g/dL (11.27-16.99) L 05/31/24 05:29 Hct 30.7 % (37-53) L 05/31/24 05:29 MCV 93.9 fl (82-101) 05/31/24 05:29 MCH 29.1 pg (27-33) 05/31/24 05:29 MCHC 30.9 g/dL (30-55) 05/31/24 05:29 RDW 13.2 % (12.1-15.1) 05/31/24 05:29 Plt Count 177 10^3/cmm (157-399) 05/31/24 05:29 MPV 10.0 fL (7.4-10.4) 05/31/24 05:29 Neut % (Auto) 79.5 % 05/31/24 05:29 Lymph % (Auto) 13.9 % 05/31/24 05:29 [place] % (Auto) 6.3 % 05/31/24 05:29 Eos % (Auto) 0.0 % 05/31/24 05:29 Baso % (Auto) 0.0 % 05/31/24 05:29 Neut # (Auto) 2.80 10^3/uL (1.8-7.7) 05/31/24 05:29 Lymph # (Auto) 0.5 10^3/uL (0.8-4.8) L 05/31/24 05:29 [place] # (Auto) 0.2 10^3/uL (0.2-0.9) 05/31/24 05:29 Eos # (Auto) 0.0 10^3/uL (0.0-0.8) 05/31/24 05:29 Baso # (Auto) 0.0 10^3/uL (0.0-0.1) 05/31/24 05:29 Nucleated RBC % (auto) 0 % 05/31/24 05: Nucleated RBCs # 0.0 /100WBC 05/31/24 05:29 Specimen Type Arterial 05/29/24 04:30 Sample Site Brachial, right 05/29/24 04:30 ABG pH 7.38 (7.35-7.45) 05/29/24 04:30 ABG pCO2 57.5 mmHg (35-45) H 05/29/24 04:30 ABG pO2 178.0 mmHg (80.0-100.0) H 05/29/24 04:30 ABG PO2/FiO2 Ratio 178 05/29/24 04:30 ABG HCO3 34.3 mmol/L (22-26) H 05/29/24 04:30 ABG O2 Saturation 99.9 05/29/24 04:30 ABG Base Excess 7.3 mmol/L (-2.0-2.0) H 05/29/24 04:30 Julius Test N/a 05/29/24 04:30 A-a O2 Gradient 60.6 mmHg (5-10) H 05/29/24 04:30 Hematocrit 41.8 % (42-52) L 05/29/24 04:30 Hgb O2 Saturation 98.5 % (95-100) 05/29/24 04:30 Carboxyhemoglobin 0.7 %THgb (0.4-20.1) 05/29/24 04:30 Methemoglobin 0.8 % (0.4-1.5) 05/29/24 04:30 Total Hemoglobin 13.6 g/dL (14-18) L 05/29/24 04:30 Sodium 145.0 mmol/L (131-143) H 05/29/24 04:30 Potassium 3.8 mmol/L (3.5-5.0) 05/29/24 04:30 Glucose 220.0 mg/dL (70-115) H 05/29/24 04:30 Ionized Calcium 1.3 mmol/L (1.1-1.4) 05/29/24 04:30 O2 Delivery Device Bipap 05/29/24 04:30 O2 Liters/Min 4.0 % 05/28/24 16:33 FiO2 100.0 % 05/29/24 04:30 Fish Stringer Assembler ID [id number] 05/29/24 04:30 Sodium 143 mmol/L (136-145) 05/31/24 05:29 Potassium 3.2 mmol/L (3.5-5.1) L 05/31/24 05:29 Chloride 98 mmol/L (98-107) 05/31/24 05:29 Carbon Dioxide 34 mmol/L (22-29) H 05/31/24 05:29 Anion Gap 14.2 (5-19) 05/31/24 05:29 BUN 34 mg/dL (8-23) H 05/31/24 05:29 Creatinine 1.2 mg/dL (0.7-1.2) 05/31/24 05:29 GFR Calculation Not Reportable 05/31/24 05:29 Glucose 176 mg/dL (65-115) H 05/31/24 05:29 POC Glucose 197 mg/dL (70-110) H 05/31/24 06:21 Calculated Osmolality 308 mOsm/kg (285-295) H 05/31/24 05:29 Lactic Acid 0.7 mmol/L (0.5-2.2) 05/28/24 16:07 Calcium 9.1 mg/dL (8.5-10.5) 05/31/24 05:29 Total Bilirubin 0.3 mg/dL (0.15-1.2) 05/31/24 05:29 AST 10 U/L (0-40) 05/31/24 05:29 ALT < 5 U/L (0-41) 05/31/24 05:29 Alkaline Phosphatase 52 U/L (40-130) 05/31/24 05:29 Troponin T Baseline 245 ng/L (0-15) H* 05/28/24 16:07 Troponin T 120 Minute 234.1 ng/L (0-15) H 05/28/24 18:22 Delta Troponin T -10.9 ABS# (0-10) L 05/28/24 18:22 Troponin T Hi Sens 6Hr 220.1 ng/L (0-15) H 05/29/24 00:50 Troponin T Hi Sens 6Hr Delta -24.9 ng/L (0-12) L 05/29/24 00:50 C-Reactive Protein 181.6 mg/L (0.0-4.9) H 05/28/24 16:07 NT-Pro-B Natriuret Pep 62361 pg/mL (0-450) H 05/28/24 16:07 Total Protein 6.4 g/dL (6.6-8.7) L 05/31/24 05:29 Albumin 3.0 g/dL (3.5-5.2) L 05/31/24 05:29 Globulin 3.4 g/dL (1.3-4.6) 05/31/24 05:29 Urine Color Yellow (Yellow) 05/28/24 16:34 Urine Appearance Cloudy (CLEAR) A 05/28/24 16:34 Urine pH 5 (5-7) 05/28/24 16:34 Ur Specific [place] 1.025 (1.005-1.030) 05/28/24 16:34 Urine Protein 3+ (Negative) H 05/28/24 16:34 Urine Glucose (UA) Norm (Normal) 05/28/24 16:34 Urine Ketones 1+ (Negative) H 05/28/24 16:34 Urine Blood 2+ (Negative) H 05/28/24 16:34 Urine Nitrate Positive (Negative) A 05/28/24 16:34 Urine Bilirubin 1+ (Negative) H 05/28/24 16:34 Urine Urobilinogen 4 mg/dL (Negative) H 05/28/24 16:34 Ur Leukocyte Esterase 2+ (Negative) H 05/28/24 16:34 Urine RBC 25-40 /hpf (0-2) H 05/28/24 16:34 Urine WBC 10-15 /hpf (0-5) H 05/28/24 16:34 Ur Squamous Epith Cells 5-10 /hpf (0-5) H 05/28/24 16:34 Amorphous Sediment Not Reportable 05/28/24 16:34 Urine Bacteria 2+ /hpf (NONE) H 05/28/24 16:34 Adenovirus (PCR) Not detected (NOT DETECT) 05/28/24 18:28 C. pneumoniae DNA (PCR) Not detected (NOT DETECT) 05/28/24 18:28 Coronavirus 229E (PCR) Not detected (NOT DETECT) 05/28/24 18:28 Human Metapneumovir PCR Not detected (NOT DETECT) 05/28/24 18:28 Influenza A (H1) PCR Not detected (NOT DETECT) 05/28/24 18:28 Influ A (H1/09) PCR Not detected (NOT DETECT) 05/28/24 18:28 Influenza A (H3) PCR Not detected (NOT DETECT) 05/28/24 18:28 Influenza Type A (PCR) Not detected (NOT DETECT) 05/28/24 18:28 Influenza Type B (PCR) Not detected (NOT DETECT) 05/28/24 18:28 M. pneumoniae (PCR) Not detected (NOT DETECT) 05/28/24 18:28 Parainfluenza 1 (PCR) Not detected (NOT DETECT) 05/28/24 18:28 Parainfluenza 2 (PCR) Not detected (NOT DETECT) 05/28/24 18:28 Parainfluenza 3 (PCR) Not detected (NOT DETECT) 05/28/24 18:28 Parainfluenza 4 (PCR) Not detected (NOT DETECT) 05/28/24 18:28 RSV Type A (PCR) Not detected (NOT DETECT) 05/28/24 18:28 RSV Type B (PCR) Not detected (NOT DETECT) 05/28/24 18:28 Entero/Rhino (PCR) Not detected (NOT DETECT) 05/28/24 18:28 SARS-CoV-2 (PCR) Not detected (NOT DETECT) 05/28/24 18:28 Vitals Last Vital Signs Temp 97.6 F 05/31/24 07:28 Pulse 81 05/31/24 08:53 Resp 20 H 05/31/24 08:43 BP 156/78 05/31/24 07:28 Pulse Ox 97 05/31/24 08:43 O2 Del Method High Flow Nasal Cannula 05/31/24 08:43 O2 Flow Rate 5 05/31/24 08:43 FiO2 40 05/30/24 07:47 Discharge Plan Discharge Patient Disposition: Hospice - Medical Facility Condition: Stable Prescriptions: New furosemide 40 mg Tablet 40 mg PO BID@08,16 15 Days Qty: 30 0RF ipratropium-albuterol 0.5 mg-3 mg(2.5 mg base)/3 mL Solution For Nebulization 3 ml inhalation Q6H.RESP 30 Days Qty: 30 0RF pantoprazole 40 mg Tablet,Delayed Release (Dr/Ec) 40 mg PO DAILY 30 Days Qty: 30 0RF budesonide 0.5 mg/2 mL Suspension For Nebulization 0.5 mg inhalation BID.RESPIRATORY 30 Days Qty: 120 0RF Eliquis 5 mg tablet See Rx Instructions .ROUTE .COMPLEX 90 Days Qty: 180 0RF Rx Instructions: Take 10mg BID for 7 days, then reduce dose to 5mg BID for 3 months prednisone 10 mg tablet See Taper PO BID Qty: 42 0RF Taper: predniSONE 60-10 60 mg Daily for 2 Days and 0 Hour 50 mg Daily for 2 Days and 0 Hour 40 mg Daily for 2 Days and 0 Hour 30 mg Daily for 2 Days and 0 Hour 20 mg Daily for 2 Days and 0 Hour 10 mg Daily for 2 Days and 0 Hour levofloxacin 750 mg tablet 750 mg PO DAILY 5 Days Qty: 5 0RF aspirin 81 mg capsule 81 mg PO DAILY 30 Days Qty: 30 0RF Continued sennosides [Evac-U-Gen (sennosides)] 8.6 mg tablet 8.6 mg PO BID citalopram 40 mg tablet 40 mg PO QDAY (DME) Gait Belt See Rx Instructions .Route .MEDSUPPLY Qty: 1 0RF Rx Instructions: As directed (DME) AFO to right with shoes See Rx Instructions .Route .MEDSUPPLY Qty: 1 0RF Rx Instructions: As directed by LEVI&O lactulose 10 gram/15 mL solution 15 ml PO DAILY PRN (Reason: Constipation) insulin aspart U-100 100 unit/mL solution See Rx Instructions .ROUTE .COMPLEX Rx Instructions: INJECT 20 UNITS IN THE MORNING AND 30 UNITS AT BEDTIME. insulin glargine U-300 conc 300 unit/mL (3 mL) insulin pen 35 unit SUBCUT DAILY (DME) nebulizers Mis See Rx Instructions .Route Qty: 1 0RF Rx Instructions: Nebulizer and accessories (DME) Oxygen Therapy See Rx Instructions .Route .MEDSUPPLY Qty: 1 0RF Rx Instructions: oxygen concentrator and tanks; 2-4Lpm per NC; give cannula, tubing and accessories as needed galantamine 4 mg tablet 4 mg PO BID Qty: 60 3RF acetaminophen 325 mg Tablet 650 mg PO Q4H PRN (Reason: pain or increased temp) Milk of Magnesia 400 mg/5 mL Suspension See Rx Instructions .ROUTE .COMPLEX PRN (Reason: Constipation) Rx Instructions: GIVE 30 ML EVERY 72 HOURS NEEDED IF NO BM IN 3 DAYS. Dulcolax (bisacodyl) 10 mg Suppository See Rx Instructions .ROUTE .COMPLEX PRN (Reason: Constipation) Rx Instructions: INSERT 1 SUPPOSITORY RECTALLY ONCE DAILY NEEDED OF CAN'T TAKE TABLETS, IF NO RESULTS FROM MILK OF MAGNESIA. Fleet Enema 19-7 gram/118 mL Enema See Rx Instructions .ROUTE .COMPLEX PRN (Reason: Constipation) Rx Instructions: Give 118 mL rectally once daily as needed, if no results from milk of magnesia and dulcolax. Dulcolax (bisacodyl) 5 mg Tablet,Delayed Release (Dr/Ec) See Rx Instructions .ROUTE .COMPLEX PRN (Reason: Constipation) Rx Instructions: Give 2 tablets once daily as needed if no results from milk of magnesia. Held gabapentin 600 mg tablet 600 mg PO BID Hold Instructions: Resume on 06/07/24. reassess after one week Discontinued famotidine 20 mg tablet 20 mg PO DAILY morphine concentrate 100 mg/5 mL (20 mg/mL) Solution 10 mg PO Q2H PRN (Reason: PAIN/AIR HUNGER) ibuprofen 200 mg Tablet 400 mg PO Q6H PRN (Reason: Pain) lorazepam [Lorazepam Intensol] 2 mg/mL Concentrate 1 mg PO Q2H PRN (Reason: ANXIETY OR RESTLESSNESS.) Discharge Orders: Discharge Order (Routine); Ordered 05/31/24 Ordered By: Maddie Sanchez Referrals: [facility] [Outside] [facility] [Outside] Rebecca Limon MD [Primary Care Provider] - Discharge Diet: As Directed Discharge Activity: Resume usual activity Patient Instructions: COPD, Furosemide (By mouth), Prednisone (By mouth), Levofloxacin (By mouth), Pantoprazole (By mouth), Apixaban (By mouth), Heart Failure (GEN), CHF Stoplight, COPD Stoplight, Opioid Safety Activity Restrictions/Additional Instructions: Patient is recommended to use Bipap at night time to prevent hypercapnea - last seetings used in hospital at IPAP 22, EPAP 8, fi02 40%. dysphagia level 4 diet- extremely thick/ pureed Discharge Attestations Time Spent in Discharge Care*: greater than 30 min Quality Metrics Clinical Quality Measures [ Venous Thromboembolism { Contraindication to Overlap Therapy: None; Overlap threrpy ordered; VTE Discharge Education: Education about anticoagulant therapy/Care Notes given; Deep Vein Thrombosis/Pulmonary Embolism Present on Admission: Yes;}] Coding Level of Care Code 92637 Total time (in minutes) for Discharge: 60 Other Coding Information Prolonged care (total time indicated above or notated here) Diagnoses Fever R50.9 Hypercapnic respiratory failure J96.92 Acute exacerbation of chronic obstructive pulmonary disease (COPD) J44.1 Pulmonary embolism I26.99 Congestive heart failure I50.9 Urinary tract infection N39.0 Acute bronchitis J20.9
[2024-05-31 11:14] LABS: Glucose Point of Care 251 mg/dL (70-110)
== END 2024-05-31 16:45 | disposition hospice, inpatient (51) | DRG 175 ==
LOC: ER 17:49 → ICU 20:00 → MEDSURG 05-30 17:41
PROVIDERS: Internal Medicine; Admitting Provider Student in an Organized Health Care Education/Training Program; Emergency Provider Emergency Medicine; PCP Family Medicine; Visit Provider Student in an Organized Health Care Education/Training Program
DX: I26.99 Other pulmonary embolism without acute cor pulmonale (principal); G93.41 Metabolic encephalopathy; I50.21 Acute systolic (congestive) heart failure; J96.01 Acute respiratory failure with hypoxia; J96.02 Acute respiratory failure with hypercapnia; I21.A1 Myocardial infarction type 2; J44.1 Chronic obstructive pulmonary disease with (acute) exacerbation; N39.0 Urinary tract infection, site not specified; T17.590A Other foreign object in bronchus causing asphyxiation, initial encounter; J44.0 Chronic obstructive pulmonary disease with (acute) lower respiratory infection; J20.9 Acute bronchitis, unspecified; Z87.891 Personal history of nicotine dependence; F03.90 Unspecified dementia, unspecified severity, without behavioral disturbance, psychotic disturbance, mood disturbance, and anxiety; Z79.82 Long term (current) use of aspirin; Z79.4 Long term (current) use of insulin; R33.9 Retention of urine, unspecified; E11.40 Type 2 diabetes mellitus with diabetic neuropathy, unspecified; Z51.5 Encounter for palliative care; E66.9 Obesity, unspecified; R62.7 Adult failure to thrive
CPT/HCPCS: 36415; 36416; 36600; 51702; 71045; 71275; 80051; 80053; 81001; 82330; 82803; 82805; 82962; 83605; 83880; 84484; 85025; 86140; 87040; 87077; 87086; 87186; 87486; 87581; 87633; 92507; 92523; 92526; 92610; 93005; 93306; 94640; 94660; 94664; 96365; 96372; 96375; 96376; 99291; C9113; J1650; J1815; J1940; J2020; J2185; J2543; J2919; J3480; J7613; J7626; Q9967